=== PATIENT | female | born 1985 | race Caucasian/White ===

== ENCOUNTER 2020-03-25 14:26 | Emergency (ER) | payer OTHER ==
[~2020-03-25] VITALS: Ht 165.1 cm; Wt 79.8 kg
[2020-03-25 15:52] LABS: Basophils # (auto) 0.1 10 ^3/uL (0-0.2); Basophils % (auto) 0.7 % (0.0-2.0); Eosinophils # (auto) 0.2 10 ^3/uL (0-0.8); Eosinophils % (auto) 2.1 % (0.0-7.0); Hematocrit 35.9 % (36.0-46.0); Lymphocytes # (auto) 3.1 10 ^3/uL (0.4-5.4); Lymphocytes % (auto) 26.9 % (10.0-50.0); Mean Corpuscular Hemoglobin 30.7 pg (28.0-32.0); Mean Corpuscular Hgb Conc. 33.5 g/dL (32.0-36.0); Mean Corpuscular Volume 91.6 fL (80.0-100.0); Monocytes # (auto) 0.6 10 ^3/uL (0-1.3); Monocytes % (auto) 5.4 % (0.0-12.0); Neutrophils # (auto) 7.6 10 ^3/uL (1.6-8.6); Neutrophils % (auto) 64.9 % (37.0-80.0); Nucleated Red Blood Cells % 0.1 %; Platelet Count (auto) 270 10^3/uL (140-450); Red Blood Cells 3.92 10^6/uL (4.0-5.20); Red Cell Distribution Width 12.7 % (11.8-14.3); White Blood Cell 11.7 10^3/uL (4.4-10.8)
[2020-03-25 19:52] VITALS: BP 142/79
== END 2020-03-25 20:05 | disposition home or self-care (01) ==
LOC: ER 14:26
DX: O36.4XX0 Maternal care for intrauterine death, not applicable or unspecified (principal)
CPT/HCPCS: 36415; 76801; 76817; 84702; 85025; 86850; 86900; 86901

== ENCOUNTER 2020-03-29 05:21 | Day surgery (SDC) | payer OTHER ==
[~2020-03-29] VITALS: Ht 165.1 cm; Wt 79.8 kg
[2020-03-29] MEDS ORDERED: LACTATED RINGER'S 1,000 ML IV ONE (06:15)
[2020-03-29] MEDS ORDERED: cefTRIAXone 1GM/50ML D5W 50 ML IV ONE (06:45)
[2020-03-29 06:53] LABS: Urine Bacteria FEW /hpf (None Seen); Urine Blood 3+ /uL (Negative); Urine Mucus FEW (None Seen); Urine Specific Gravity 1.041 (1.001-1.035); Urine WBC 43 /hpf (0 - 5)
[2020-03-29 07:34] LABS: Basophils # (auto) 0 10 ^3/uL (0-0.2); Basophils % (auto) 0.6 % (0.0-2.0); Eosinophils # (auto) 0 10 ^3/uL (0-0.8); Hematocrit 34.3 % (36.0-46.0); Hemoglobin 11.8 g/dL (12.2-16.2); Lymphocytes # (auto) 0.8 10 ^3/uL (0.4-5.4); Lymphocytes % (auto) 10.7 % (10.0-50.0); Mean Corpuscular Hemoglobin 31.5 pg (28.0-32.0); Mean Corpuscular Hgb Conc. 34.4 g/dL (32.0-36.0); Mean Corpuscular Volume 91.7 fL (80.0-100.0); Monocytes # (auto) 0.3 10 ^3/uL (0-1.3); Monocytes % (auto) 3.7 % (0.0-12.0); Neutrophils # (auto) 6.1 10 ^3/uL (1.6-8.6); Platelet Count (auto) 248 10^3/uL (140-450); Red Blood Cells 3.74 10^6/uL (4.0-5.20); White Blood Cell 7.2 10^3/uL (4.4-10.8)
[2020-03-29 07:50] LABS: INR 1.06 (0.9-1.15); Partial Thromboplastin Time 25.5 sec (23.64-32.05)
[2020-03-29 07:53] LABS: Albumin 3.8 g/dL (3.4-5.0); Calcium 8.9 mg/dL (8.5-10.1); Potassium 3.5 mmol/L (3.5-5.1)
[2020-03-29 07:56] LABS: Bilirubin, Total 0.7 mg/dL (0.2-1.0); Total Protein 7.6 g/dL (6.4-8.2)
[2020-03-29] MEDS ORDERED: MEPERIDINE HCL (25 MG/ML) 1ML VIAL ONE (08:25)
[2020-03-29] MEDS ORDERED: MIDAZOLAM HCL 1MG/1ML-2 ML VIAL ONE (08:26)
[2020-03-29] MEDS ORDERED: SODIUM CHLORIDE LOCK 10 ML ONE (08:26)
[2020-03-29] MEDS ORDERED: ONDANSETRON HCL 4 MG/2 ML VIAL ONE (08:26)
[2020-03-29] MEDS ORDERED: fentaNYL CITRATE 100 MCG/2 ML VL ONE (08:26)
[2020-03-29] MEDS ORDERED: PROPOFOL 10 MG/ML 20 ML IV ONE (08:26)
[2020-03-29] MEDS ORDERED: LIDOCAINE 2% (LOCAL ANESTH.) PF 5ml SDV ONE (09:41)
[2020-03-29] MEDS ORDERED: OXYTOCIN 10UNIT/ML 1ML VIAL ONE (10:08)
[2020-03-29] MEDS ORDERED: LACTATED RINGER'S 1,000 ML IV SCH (10:21)
[2020-03-29] MEDS ORDERED: ONDANSETRON HCL 4 MG/2 ML VIAL IV PRN (10:30)
[2020-03-29 11:30] VITALS: BP 116/68
== END 2020-03-29 12:09 | disposition home or self-care (01) ==
LOC: ER 05:21 → OR 1 05:22 → ER 09:06 → OR 1 12:09
PROVIDERS: ATTEND Specialist
DX: N93.9 Abnormal uterine and vaginal bleeding, unspecified (principal); O02.1 Missed abortion; F41.9 Anxiety disorder, unspecified; F32.9 Major depressive disorder, single episode, unspecified; I34.1 Nonrheumatic mitral (valve) prolapse; Z90.49 Acquired absence of other specified parts of digestive tract; Z98.51 Tubal ligation status; Z80.9 Family history of malignant neoplasm, unspecified
CPT/HCPCS: 36415; 59820; 80053; 81001; 84702; 85025; 85610; 85730; 86850; 86900; 86901; J0696; J2001; J2175; J2250; J2405; J2590; J2704; J3010

== ENCOUNTER → 2020-04-15 | Outpatient (CLI) | payer OTHER | END | disposition home or self-care (01) | LOC: LAB 11:28 | PROVIDERS: ATTEND Specialist | DX: O07.4 Failed attempted termination of pregnancy without complication (principal) | CPT/HCPCS: 36415; 84702 ==

== ENCOUNTER 2024-08-21 03:23 | Emergency (ER) | payer OTHER ==
[~2024-08-21] VITALS: Ht 165.1 cm; Wt 81.8 kg
--- NOTE | 2024-08-21 03:40 | ED.PDOC ---
History of Present Illness HPI Comments 39-year-old female presents with a chief complaint of chest pain, palpitations, and dysuria. Patient states that the chest pain began at 0100 this morning, describes as pressure, and rates her pain a 6/10. Patient mentions that she has been having "UTI symptoms since Wednesday". Patient is agitated upon questioning. No other symptoms or modifying factors present at this time. 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 Family History Family History: Family hx of Cancer, Family hx of heart bao Family History (Other): Hyperthyroidism, fibromialgia, high lipids; seizures Social History Smoker: Non-Smoker Alcohol: Rarely Drugs: Marijuana Lives In: Home Constitutional: denies: chills, diaphoresis, fatigue, fever, malaise, sweats, weakness, others EENTM: denies: blurred vision, double vision, ear bleeding, ear discharge, ear drainage, ear pain, ear ringing, eye pain, eye redness, hearing loss, mouth pain, mouth swelling, nasal discharge, nose bleeding, nose congestion, nose pain, photophobia, tearing, throat pain, throat swelling, voice changes, others Respiratory: denies: cough, hemoptysis, orthopnea, SOB at rest, shortness of breath, SOB with excertion, stridor, wheezing, others Cardiovascular: reports: chest pain, palpitations; denies: dizzy spells, diaphoresis, Dyspnea on exertion, edema, irregular heart beat, left arm pain, lightheadedness, PND, syncope, others Gastrointestinal: denies: abdomen distended, abdominal pain, blood streaked bowels, constipated, diarrhea, dysphagia, difficulty swallowing, hematemesis, melena, nausea, poor appetite, poor fluid intake, rectal bleeding, rectal pain, vomiting, others Genitourinary: reports: dysuria; denies: abnormal vagina bleeding, burning, dyspareunia, flank pain, frequency, hematuria, incontinence, pain, , vagina discharge, urgency, others Neurological: denies: dizziness, fainting, headache, left sided numbness, left sided weakness, numbness, paresthesia, pre-existing deficit, right sided numbness, right sided weakness, seizure, speech problems, tingling, tremors, weakness, others Musculoskeletal: denies: back pain, gout, joint pain, joint swelling, muscle pain, muscle stiffness, neck pain, others Integumetry: denies: bruises, change in color, change in hair/nails, dryness, laceration, lesions, lumps, rash, wounds, others Allergic/Immunocompromised: denies: Difficulty Healing, Frequent Infections, Hives, Itching, others Hematologic/Lymphatic: denies: anemia, blood clots, easy bleeding, easy bruising, swollen glands, others Endocrine: denies: excessive hunger, excessive sweating, excessive thirst, excessive urination, flushing, intolerance to cold, intolerance to heat, unexplained weight gain, unexplained weight loss, others Psychiatric: denies: anxiety, bipolar disorder, depression, hopeless, panic disorder, schizophrenia, sleepless, suicidal, others All Other Systems: Reviewed and Negative Physical Exam General Appearance: No Apparent Distress, Normal HEENT: Normal ENT Inspection, Pharynx Normal, TMs Normal Neck: Full Range of Motion, Non-Tender, Normal, Normal Inspection Respiratory: Chest Non-Tender, Lungs Clear, No Accessory Muscle Use, No Respiratory Distress, Normal Breath Sounds Cardiovascular: No Edema, No JVD, No Murmur, No Gallop, Normal Peripheral Pulses, Regular Rate/Rhythm Breast Exam: Deferred Gastrointestinal: No Organomegaly, Non Tender, No Pulsatile Mass, Normal Bowel Sounds, Soft Genitalia: Deferred Pelvic: Deferred Rectal: Deferred Extremities: No calf tenderness, Normal capillary refill, Normal inspection, Normal range of motion, Non-tender, No pedal edema Musculoskeletal : Apperance: Normal Neurologic: Alert, superintendent building II-XII nml as Tested, No Motor Deficits, Normal Affect, Normal Mood, No Sensory Deficits Cerebellar Function: Normal Reflexes: Normal Skin: Dry, Normal Color, Warm Lymphatic: No Adenopathy Was a procedure done? Was a procedure done?: No Differential Dx Considerations may include: UTI, pyelonephritis, viral syndrome, musculoskeletal strain X-Ray, Labs, Meds, VS Vital Signs Date Time Temp Pulse Resp B/P (MAP) Pulse Ox O2 Delivery O2 Flow Rate FiO2 08/21/24 04:54 100.2 08/21/24 04:31 106 08/21/24 03:50 100.5 114 20 123/79 (94) 99 100.5 08/21/24 03:50 114 20 99 Room Air 08/21/24 03:47 100.1 08/21/24 03:31 107 08/21/24 03:28 100.5 114 20 123/79 (94) 99 Lab Test 08/21/24 04:21 08/21/24 04:16 08/21/24 03:35 Range/Units Urine Color Straw Yellow Urine Clarity Turbid H Clear Urine pH 6.5 5.0-9.0 Urine Specific [place] 1.014 1.001-1.035 Urine Protein 1+ H Negative Urine Ketones 2+ H Negative Urine Blood 2+ H Negative /uL Urine Nitrite Negative Negative Urine Bilirubin Negative Negative Urine Urobilinogen Normal Negative mg/dL Urine Leukocyte Esterase 3+ Negative /uL Urine RBC 123 0 - 4 /hpf Urine WBC 575 0 - 5 /hpf Urine Squamous Epithelial Cells Few <5 /hpf Urine Bacteria Few H None Seen /hpf Urine Mucus Few None Seen Urine Yeast (Budding) Few None Seen /hpf Urine Glucose Normal Normal mg/dL Urine Test Negative Negative Troponin I High Sensitivity < 3 L < 3 L </=34 ng/L White Blood Count 17.7 H 4.4-10.8 10^3/uL Red Blood Count 5.09 4.0-5.20 10^6/uL Hemoglobin 15.7 12.2-16.2 g/dL Hematocrit 45.8 36.0-46.0 % Mean Corpuscular Volume 89.9 80.0-100.0 fL Mean Corpuscular Hemoglobin 30.9 28.0-32.0 pg Mean Corpuscular Hemoglobin Concent 34.4 32.0-36.0 g/dL Red Cell Distribution Width 12.7 11.8-14.3 % Platelet Count 309 140-450 10^3/uL Mean Platelet Volume 8.1 6.9-10.8 fL Neutrophils (%) (Auto) 80.6 H 37.0-80.0 % Lymphocytes (%) (Auto) 11.3 10.0-50.0 % Monocytes (%) (Auto) 7.0 0.0-12.0 % Eosinophils (%) (Auto) 0.3 0.0-7.0 % Basophils (%) (Auto) 0.8 0.0-2.0 % Neutrophils # (Auto) 14.3 H 1.6-8.6 10 ^3/uL Lymphocytes # (Auto) 2.0 0.4-5.4 10 ^3/uL Monocytes # (Auto) 1.2 0-1.3 10 ^3/uL Eosinophils # (Auto) 0.1 0-0.8 10 ^3/uL Basophils # (Auto) 0.1 0-0.2 10 ^3/uL Nucleated Red Blood Cells 0.0 % Sodium Level 137 136-145 mmol/L Potassium Level 3.8 3.5-5.1 mmol/L Chloride Level 104 98-107 mmol/L Carbon Dioxide Level 24 20-31 mmol/L Anion Gap 9 5-15 Blood Urea Nitrogen 9 9-23 mg/dL Creatinine 1.08 H 0.550-1.02 mg/dL Glomerular Filtration Rate Calc 67 >90 mL/min BUN/Creatinine Ratio 8.3 L 10.0-20.0 Serum Glucose 108 H 74-106 mg/dL Calcium Level 10.1 8.7-10.4 mg/dL Current Medications Medications (Trade) Dose Ordered Sig/Guero Route Start Time Stop Time Status Last Admin Acetaminophen (Tylenol Solution Oral) 1,000 mg ONCE ONCE PO 08/21/24 03:45 08/21/24 03:46 DC 08/21/24 03:47 Time of 1ST Reevaluation: 04:07 Reevaluation 1ST: Unchanged Patient Education/Counseling: Diagnosis, Treatment, Prognosis Family Education/Counseling: No Family Present Departure 1 Departure Time of Disposition: 05:51 (Patient has a urinary tract infection. Uterus workup is benign. We will discharge patient home with outpatient follow up) Impression: Primary Impression: Urinary tract infection Qualified Codes: N30.01 - Acute cystitis with hematuria Additional Impression: Chest pain Qualified Codes: R07.89 - Other chest pain Disposition: HOME / SELF CARE / HOMELESS Condition: Stable Additional Instructions: You have a urinary tract infection. You were prescribed antibiotics. Please take as directed. You can take Tylenol Motrin as needed for pain. It is important that he follow up with the regular doctor within 1 week to ensure you are doing better. If your symptoms worsen or you have any other concerns then please return to the emergency room. e-Prescriptions Cefdinir (Cefdinir) 300 Mg Cap 1 CAP PO BID for 7 Days, #14 CAP Prov: MARLENA MULTANI MD 08/21/24 Discharged With: Self Critical Care Note Critical Care Time?: No Stability Stability form required: No I personally scribed for MARLENA MULTANI MD ([email or web address]) on 08/21/24 at 03:40. Electronically submitted by Vidal Power ([email or web address]). MARLENA MULTANI MD Aug 21, 2024 03:40
[2024-08-21] MEDS: ACETAMINOPHEN 650 mg PER 20.3 mL UD PO ONE (03:47)
[2024-08-21 03:51] LABS: Basophils # (auto) 0.1 10 ^3/uL (0-0.2); Basophils % (auto) 0.8 % (0.0-2.0); Eosinophils # (auto) 0.1 10 ^3/uL (0-0.8); Eosinophils % (auto) 0.3 % (0.0-7.0); Hematocrit 45.8 % (36.0-46.0); Hemoglobin 15.7 g/dL (12.2-16.2); Lymphocytes % (auto) 11.3 % (10.0-50.0); Mean Corpuscular Hemoglobin 30.9 pg (28.0-32.0); Mean Corpuscular Hgb Conc. 34.4 g/dL (32.0-36.0); Mean Corpuscular Volume 89.9 fL (80.0-100.0); Monocytes # (auto) 1.2 10 ^3/uL (0-1.3); Neutrophils # (auto) 14.3 10 ^3/uL (1.6-8.6); Neutrophils % (auto) 80.6 % (37.0-80.0); Platelet Count (auto) 309 10^3/uL (140-450); Red Blood Cells 5.09 10^6/uL (4.0-5.20); Red Cell Distribution Width 12.7 % (11.8-14.3); White Blood Cell 17.7 10^3/uL (4.4-10.8)
[2024-08-21 04:00] LABS: Anion Gap 9 (5-15); Carbon Dioxide 24 mmol/L (20-31); Chloride 104 mmol/L (98-107); Potassium 3.8 mmol/L (3.5-5.1); Sodium 137 mmol/L (136-145)
[2024-08-21 04:01] LABS: Calcium 10.1 mg/dL (8.7-10.4)
[2024-08-21 04:06] LABS: BUN/Creatinine Ratio 8.3 (10.0-20.0)
[2024-08-21 04:10] LABS: Blood Urea Nitrogen 9 mg/dL (9-23); Glucose 108 mg/dL (74-106)
[2024-08-21 04:41] LABS: Urine Bacteria FEW /hpf (None Seen); Urine Blood 2+ /uL (Negative); Urine Budding Yeast FEW /hpf (None Seen); Urine Clarity Turbid (Clear); Urine Mucus FEW (None Seen); Urine Protein, UAD 1+ (Negative); Urine Specific Gravity 1.014 (1.001-1.035); Urine Urobilinogen Normal (Negative); Urine WBC 575 /hpf (0 - 5); Urine pH 6.5 (5.0-9.0)
[2024-08-21 04:46] LABS: Urine Color STRAW (Yellow)
[2024-08-21] MEDS ORDERED: CEFD300C2 PO (05:52)
[2024-08-21 06:13] VITALS: BP 130/59; RESP 18; TEMP 98.5; O2SAT 98
[2024-08-21] MEDS: ONDANSETRON HCL 4 MG/2 ML VIAL ONE (06:20)
[2024-08-21] MEDS: cefTRIAXone 1GM/50ML D5W 50 ML IV ONE (06:20)
[2024-08-21] MEDS: ONDANSETRON HCL 4 MG/2 ML VIAL IV ONE (06:21)
[2024-08-21 06:35] VITALS: PULSE 90
--- NOTE | 2024-08-21 06:48 | ECG ---
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
--- NOTE | 2024-08-21 06:48 | ECG ---
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
--- NOTE | 2024-08-22 14:48 | ECG ---
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
== END 2024-08-21 06:49 | disposition home or self-care (01) ==
LOC: ER 03:23
DX: N39.0 Urinary tract infection, site not specified (principal); R07.89 Other chest pain; F41.9 Anxiety disorder, unspecified; F32.9 Major depressive disorder, single episode, unspecified; F15.90 Other stimulant use, unspecified, uncomplicated; Z90.49 Acquired absence of other specified parts of digestive tract; Z98.890 Other specified postprocedural states; Z88.1 Allergy status to other antibiotic agents
CPT/HCPCS: 36415; 80048; 81001; 81025; 84484; 85025; 93005; 96365; 96375; 99284; J0696; J2405

== ENCOUNTER 2025-01-14 17:56 | Inpatient (IN) | payer OTHER ==
[~2025-01-14] VITALS: Ht 165.1 cm; Wt 86.5 kg
[~2025-01-14 17:56] MED LIST: CEFD300C2 PO
--- NOTE | 2025-01-14 19:06 | ED.PDOC ---
History of Present Illness HPI Comments 39 y/o obese F presents with c/o urinary symptoms for the past several months. Patient is a poor historian. She endorses on burning sensation to her urethra and having no relief or improvement after completing 2 courses of antibiotics following placement in September 2024. Patient also c/o head, RUQ abdominal and back pain, with associated vomiting for the past 2 days and chest pain, with elevated heart rate and palpations, today. Only reports a history of depression, anxiety, and uterine ablation. Denies any hematuria, urgency, frequency, incontinence, fever, chills, or further associated symptoms. Chief Complaint: Abdominal Pain Time Seen by MD: 18:25 Primary Care Provider: none Reviewed Notes: Nurses Notes, Medications, Allergies Allergies: Coded Allergies: Amoxicillin (Verified Allergy, Mild, HEADACHE, 03/29/20) Nitrofurantoin (Verified Allergy, Unknown, 01/14/25) Uncoded Allergies: COBAN (Allergy, Unknown, 07/30/14) Home Meds Active Scripts Cefdinir (Cefdinir) 300 Mg Cap, 1 CAP PO BID for 7 Days, #14 CAP Prov:MARLENA MULTANI MD 08/21/24 Information Source: Patient Mode of Arrival: Wheelchair Severity: Moderate Timing: Months Duration: Since onset Prehospital treatment: Other (see HPI) Review of Systems: REVIEW OF SYSTEMS: No fever, no chills, or fatigue HEENT: No sore throat, no earache, no congestion, no neck pain. Cardiac: chest pain. palpitations. elevated heart rate Lungs: No shortness of breath, no cough. GI: RUQ abdominal pain. vomiting. No nausea, no diarrhea, no constipation, : Ureteral pain No hematuria. Musculoskeletal: Back pain. No joint pain , no joint swelling, no extremity edema. Skin: No rash, no itching. Neuro: headache, no dizziness, no weakness Vital Signs Vital Signs Date Time Temp Pulse Resp B/P (MAP) Pulse Ox O2 Delivery O2 Flow Rate FiO2 01/14/25 22:03 99.6 101 20 118/75 (89) 100 99.6 Physical Exam General: Awake, alert and oriented. No acute distress. Obese. Skin: Mildly diaphoretic. Skin in warm and intact. Appropriate color for ethnicity. HEENT: The head is normocephalic and atraumatic. Conjunctivae are clear without exudates or hemorrhage. Sclera is non-icteric. EOM are intact. No signs of nystagmus. Eyelids are normal in appearance without swelling or lesions. Oral mucosa is pink and moist Neck: The neck is supple with normal range of motion. No JVD. Cardiac: Rapid rate but normal rhythm. No murmurs, gallops, or rubs are auscultated. Respiratory: No signs of respiratory distress. Lung sounds are clear in all lobes bilaterally without rales, rhonchi, or wheezes. Abdominal: Right upper and lower quadrant and epigastric tenderness. Abdomen is soft, without distention. Bowel sounds are present and normoactive in all four quadrants. Extremities: Upper and lower extremities are atraumatic in appearance without deformity or edema. Neurological: The patient is awake, alert and oriented to person, place, and time with normal speech. Speech is clear. There is no facial asymmetry. Psychiatric: Appropriate mood and affect. Good judgement and insight. 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 Was a procedure done?: No EKG EKG : Pulse Rate (adult): 152 [place]: Normal Cardiac Rhythm: ST Block: None Hypertrophy: None ST: Normal Comments Singulair PVC. No STEMI Differential Dx Considerations may include: Differential diagnoses considered include: Abdominal aortic aneurysm, CT, esophageal rupture, intestinal obstruction, mesenteric ischemia, perforated vi scus or solid organ rupture, CHF with hepatomegaly, pneumonia, abscess, appendicitis, biliary disease, diverticulitis, gastritis, gastroenteritis, hepatitis, hernia, inflammatory bowel disease, pancreatitis, peptic ulcer disease, urinary tract infection, ureteral colic, constipation, GERD, irritable syndrome, abdominal wall pain, nonspecific abdominal pain, herpes zoster. X-Ray, Labs, Meds, VS Vital Signs Date Time Temp Pulse Resp B/P (MAP) Pulse Ox O2 Delivery O2 Flow Rate FiO2 01/14/25 22:03 99.6 101 20 118/75 (89) 100 99.6 01/14/25 20:00 102.8 01/14/25 19:54 102.8 138 22 110/74 (86) 99 102.8 01/14/25 19:06 152 01/14/25 18:24 152 01/14/25 18:21 102.7 145 22 96/65 (75) 99 102.7 Lab Test 01/14/25 21:04 01/14/25 19:07 Range/Units Lactic Acid Level 1.8 2.2 *H 0.4-2.0 mmol/L White Blood Count 29.3 H 4.4-10.8 10^3/uL Red Blood Count 4.90 4.0-5.20 10^6/uL Hemoglobin 15.3 12.2-16.2 g/dL Hematocrit 42.9 36.0-46.0 % Mean Corpuscular Volume 87.7 80.0-100.0 fL Mean Corpuscular Hemoglobin 31.2 28.0-32.0 pg Mean Corpuscular Hemoglobin Concent 35.6 32.0-36.0 g/dL Red Cell Distribution Width 13.1 11.8-14.3 % Platelet Count 207 140-450 10^3/uL Mean Platelet Volume 8.6 6.9-10.8 fL Neutrophils (%) (Auto) 37.0-80.0 % Lymphocytes (%) (Auto) 10.0-50.0 % Monocytes (%) (Auto) 0.0-12.0 % Basophils (%) (Auto) 0.0-2.0 % Neutrophils # (Auto) 1.6-8.6 10 ^3/uL Lymphocytes # (Auto) 0.4-5.4 10 ^3/uL Monocytes # (Auto) 0-1.3 10 ^3/uL Differential Total Cells Counted 100.0 100 Neutrophils % (Manual) 88 H 37.0-80.0 Band Neutrophils % (Manual) 4 Lymphocytes % (Manual) 2 L 10.0-50.0 Monocytes % (Manual) 6 0-12 Eosinophils % (Manual) 0 0-7 Basophils % (Manual) 0 0.0-2.0 Metamyelocytes % (manual) 0 Myelocytes % (Manual) 0 Promyelocytes % (Manual) 0 Blast Cells % (Manual) 0 Reactive Lymphocytes 0 Platelet Estimate Adequate Red Blood Cell Morphology Normal Urine Color Light-orange Yellow Urine Clarity Turbid H Clear Urine pH 6.0 5.0-9.0 Urine Specific [place] 1.026 1.001-1.035 Urine Protein 2+ H Negative Urine Ketones 2+ H Negative Urine Blood 2+ H Negative /uL Urine Nitrite Negative Negative Urine Bilirubin Negative Negative Urine Urobilinogen Normal Negative mg/dL Urine Leukocyte Esterase 2+ Negative /uL Urine RBC 20 0 - 4 /hpf Urine Microscopic WBC 59 H 0-5 /HPF Urine Squamous Epithelial Cells Mod <5 /hpf Urine Bacteria Few H None Seen /hpf Urine Mucus Few None Seen Urine Glucose Trace Normal mg/dL Sodium Level 134 L 136-145 mmol/L Potassium Level 3.4 L 3.5-5.1 mmol/L Chloride Level 101 98-107 mmol/L Carbon Dioxide Level 20 20-31 mmol/L Anion Gap 13 5-15 Blood Urea Nitrogen 9 9-23 mg/dL Creatinine 1.05 H 0.550-1.02 mg/dL Glomerular Filtration Rate Calc 70 >90 mL/min BUN/Creatinine Ratio 8.6 L 10.0-20.0 Serum Glucose 116 H 74-106 mg/dL Calcium Level 9.6 8.7-10.4 mg/dL Total Bilirubin 1.3 H 0.2-1.0 mg/dL Aspartate Amino Transferase (AST) 33 13-40 U/L Alanine Aminotransferase (ALT) 67 H 7-40 U/L Alkaline Phosphatase 99 46-116 U/L Troponin I High Sensitivity < 3 L </=34 ng/L B-Type Natriuretic Peptide 13.01 0-100 pg/mL Total Protein 7.9 5.7-8.2 g/dL Albumin 4.9 H 3.2-4.8 g/dL Urine Opiates Screen Neg NEGATIVE Urine Fentanyl Screen Neg NEGATIVE Urine Barbiturates Screen Neg NEGATIVE Urine Phencyclidine Screen Neg NEGATIVE Urine Amphetamines Screen Neg NEGATIVE Urine Benzodiazepines Screen Neg NEGATIVE Urine Cocaine Screen Neg NEGATIVE Urine Cannabinoids Screen Pos NEGATIVE Current Medications Medications (Trade) Dose Ordered Sig/Guero Route Start Time Stop Time Status Last Admin Sodium Chloride 1,000 ml @ 1,000 mls/hr Q1H ONCE IV 01/14/25 18:45 01/14/25 19:44 DC 01/14/25 20:56 Ondansetron HCl (Zofran) 4 mg ONCE ONCE IV 01/14/25 18:45 01/14/25 18:46 DC 01/14/25 19:36 Ceftriaxone Sodium 50 ml @ 100 mls/hr ONCE ONCE IV 01/14/25 18:45 01/14/25 19:14 DC 01/14/25 19:36 Vancomycin HCl 200 ml @ 200 mls/hr ONCE ONCE IV 01/14/25 18:45 01/14/25 19:44 DC 01/14/25 20:55 Ketorolac Tromethamine (Toradol Injection) 15 mg ONCE ONCE IV 01/14/25 18:45 01/14/25 18:46 DC 01/14/25 19:36 Acetaminophen (Tylenol Tablet) 650 mg ONCE ONCE PO 01/14/25 20:00 01/14/25 20:01 DC 01/14/25 20:00 Time of 1ST Reevaluation: 18:55 Reevaluation 1ST: Unchanged Patient Education/Counseling: Other (Need for admission) Family Education/Counseling: No Family Present Departure 1 Departure Time of Disposition: 21:52 Impression: Primary Impression: Sepsis Disposition: ADMITTED INPATIENT Condition: Stable Comments IV fluids, antibiotics initiated in the emergency department. Extensive evaluation was performed in attempt to identify or rule out: (See differential diagnosis section) The following tests were ordered, and results were reviewed by me and discussed with patient: (See diagnostic results section) The following test were independently interpreted by me: EKG I reviewed and agreed with the following test results read by other providers: N/A I reviewed the following notes from the pt's past medical encounters: June 23, 2024 and August 21, 2024 encounters for threatened and UTI, res pectively. Additional information was gathered from interviewing the following independent historians: N/A Discussion of management or test interpretation with external physician/other qualified health health care marketing specialist: N/A Addressed an acute or chronic illness that poses a threat to life or bodily function: Sepsis Decision regarding hospitalization or escalation of hospital level of care: Risk and benefits of admission for further treatment of patient's condition was considered. Due to patient's current clinical condition, high risk of decline and poor outcome if discharged and need for further inpatient management and monitoring, patient will be admitted to the hospital. Drug therapy requiring intensive monitoring for toxicity: N/A Parenteral controlled substances: N/A Decision regarding elective major surgery with identified patient or procedure risk factors: N/A Decision regarding emergency major surgery: N/A Decision not to resuscitate or to de-escalate care because of poor prognosis: N/A Diagnosis or treatment significantly limited by social determinants of health: N/A Critical Care Note Critical Care Time?: Yes (35 min-critical care time only) Critical care comment: Due to a high probability of clinically significant, life threatening deterioration, the patient required my highest level of preparedness to interven e emergently and I personally spent this critical care time directly and personally managing the patient. This critical care time included obtaining a history; examining the patient; pulse oximetry; ordering and review of studies; arranging urgent treatment with development of a management plan; evaluation of patient's response to treatment; frequent reassessment; and, discussions with other providers. This critical care time was performed to assess and manage the high probability of imminent, life-threatening deterioration that could result in multi-organ failure. It was exclusive of separately billable procedures and treating other patients and teaching time. Please see my other sections and the rest of the note for further information on patient assessment and treatment. Stability Stability form required: No Heart Score Heart Score: Heart Score Response (Comments) Value History N/A 0 EKG N/A 0 Age N/A 0 Risk Factors N/A 0 Troponin N/A 0 Total 0 I personally scribed for YUNIER HUFFMAN MD ([email or web address]) on 01/14/25 at 19:06. Kyara ctronically submitted by Denton Jackman ([email or web address]). I personally scribed for YUNIER HUFFMAN MD ([email or web address]) on 01/14/25 at 19:08. Electronically submitted by Denton Jackman ([email or web address]). YUNIER HUFFMAN MD January 14, 2025 19:06
[2025-01-14 19:19] LABS: Urine Bacteria FEW /hpf (None Seen); Urine Blood 2+ /uL (Negative); Urine Clarity Turbid (Clear); Urine Color Light-Orange (Yellow); Urine Mucus FEW (None Seen); Urine Protein, UAD 2+ (Negative); Urine Specific Gravity 1.026 (1.001-1.035); Urine Squamous Epithelial Cell MOD /hpf (<5); Urine Urobilinogen Normal (Negative); Urine WBC 59 /HPF (0-5)
[2025-01-14 19:28] LABS: Amphetamine Screen, Urine Neg (NEGATIVE); Barbiturate Scree,Urine Neg (NEGATIVE); Benzodiazephine Screen, Urine Neg (NEGATIVE); Cannabinoid Screen, Urine Pos (NEGATIVE); Cocaine Screen, Urine Neg (NEGATIVE); Opiate Scree,Urine Neg (NEGATIVE); Phencyclidine Screen, Urine Neg (NEGATIVE)
[2025-01-14 19:32] LABS: Hematocrit 42.9 % (36.0-46.0); Hemoglobin 15.3 g/dL (12.2-16.2); Mean Corpuscular Hemoglobin 31.2 pg (28.0-32.0); Mean Corpuscular Hgb Conc. 35.6 g/dL (32.0-36.0); Mean Corpuscular Volume 87.7 fL (80.0-100.0); Platelet Count (auto) 207 10^3/uL (140-450); Red Cell Distribution Width 13.1 % (11.8-14.3); White Blood Cell 29.3 10^3/uL (4.4-10.8)
[2025-01-14 19:33] LABS: Basophils % (manual) 0 (0.0-2.0); Eosinophils % (manual) 0 (0-7); Metamyelocytes % 0
[2025-01-14 19:34] LABS: Blast Cells 0; Myelocytes % 0; Promyelocytes % 0; Reactive Lymphocytes 0
[2025-01-14] MEDS: cefTRIAXone 1GM/50ML D5W 50 ML IV ONE (19:36)
[2025-01-14] MEDS: ONDANSETRON HCL 4 MG/2 ML VIAL IV ONE (19:36)
[2025-01-14] MEDS: KETOROLAC TROMETH 30 MG/ML 1ML VIAL IV ONE (19:36)
[2025-01-14 19:56] LABS: Alkaline Phosphatase 99 U/L (46-116); Anion Gap 13 (5-15); Aspartate Aminotransferase 33 U/L (13-40); BUN/Creatinine Ratio 8.6 (10.0-20.0); Blood Urea Nitrogen 9 mg/dL (9-23); Calcium 9.6 mg/dL (8.7-10.4); Chloride 101 mmol/L (98-107); Total Protein 7.9 g/dL (5.7-8.2)
[2025-01-14 19:58] LABS: Alanine Aminotransferase 67 U/L (7-40); Albumin 4.9 g/dL (3.2-4.8); Bilirubin, Total 1.3 mg/dL (0.2-1.0); Carbon Dioxide 20 mmol/L (20-31); Glucose 116 mg/dL (74-106); Potassium 3.4 mmol/L (3.5-5.1); Sodium 134 mmol/L (136-145)
[2025-01-14] MEDS: ACETAMINOPHEN 325 MG TAB PO ONE (20:00)
[2025-01-14 20:05] LABS: Lactic Acid w/Reflex 2.2 mmol/L (0.4-2.0)
[2025-01-14] MEDS: SODIUM CHLORIDE 0.9% 1,000 ML IV ONE ×3 (20:10→22:51)
--- NOTE | 2025-01-14 20:31 | DVH ---
CHEST RADIOGRAPH Indication: tachycardia Technique: Single frontal view of the chest was obtained COMPARISON: None FINDINGS: Lines and Tubes: None Lungs: Clear Pleura: No effusion. No pneumothorax. Cardiomediastinal contours: Unremarkable IMPRESSION: No abnormality.
[2025-01-14 20:47] LABS: Band Neutrophils % (manual) 4; Lymphocytes % (manual) 2 (10.0-50.0); Monocytes % (manual) 6 (0-12); Platelet Estimate Adequate; RBC Morphology Normal
[2025-01-14] MEDS: VANCOMYCIN 1GM/200ML PM 200 ML IV ONE (20:55)
[2025-01-14] MEDS ORDERED: VANCOMYCIN PER PHARMACY 0 MG IV SCH (22:15)
[2025-01-14] MEDS ORDERED: HYDROcodone-ACET 5/325MG TAB PO PRN (22:15)
[2025-01-14] MEDS: IOHEXOL 300 MG/ML 100ML BOTTLE IJ ONE (22:50)
[2025-01-14] MEDS: POTASSIUM CHL 20 Meq TABLET PO ONE (22:57)
[2025-01-14] MEDS: SODIUM CHLORIDE 0.9% 1,000 ML IV SCH (22:58)
--- NOTE | 2025-01-14 23:04 | DVH ---
Exam: CT CT AB PEL WITH IV CON ONLY History: sepsis COMPARISON: None Technique: Multidetector spiral CT of the abdomen and pelvis was performed from lung bases to pubic s ymphysis. Intravenous contrast was administered during this examination. Portal venous imaging was o btained. Axial, coronal and sagittal multiplanar reformats were performed by the technologist on a [employer] workstation. Radiation Dose : 1. Abdomen/Pelvis: CTDIvol 22.26 mGy, DLP 1139.55 mGy*cm. CONTRAST: Type of contrast: Omnipaque 300 Contrast injected: 100 ml Contrast ingested: None Findings: Lung Bases: No acute or significant lung base finding. Normal heart size. No pleural or pericardial effusion. Liver: The liver is enlarged, measuring 22.7 cm in craniocaudal dimension. There is diffuse hepatic s teatosis. No focal lesions. Normal hepatic vascular enhancement. Gallbladder and Biliary Tree: Status post cholecystectomy. Spleen: Unremarkable Pancreas: The pancreas is normal in appearance without focal lesions or abnormal enhancement. Adrenal Glands: Unremarkable Kidneys: Delayed right nephrogram with focally diminished attenuation within the superior pole and mild right hydroureteronephrosis with moderate perinephric inflammatory change and stranding. No iden tifiable obstructing calculus. Left interpolar renal cyst measures 2.1 cm. No evidence of left hydron ephrosis. Bladder: Unremarkable Bowel: The stomach is grossly normal in appearance. Small bowel and colon are normal in caliber and d istribution. The appendix is not visualized; however, no secondary findings of acute appendicitis belkis ntified. Ascites: Absent Lymphadenopathy: No mesenteric, retroperitoneal or periportal lymphadenopathy. Abdominal Wall and Mesentery: Unremarkable. Vasculature: The visualized abdominal aorta is normal in size and caliber. Abdominal and pelvic vess els demonstrate normal enhancement. Pelvic Organs: Unremarkable Musculoskeletal: No aggressive focal bony lesions, acute fractures or dislocation. IMPRESSION: 1. Delayed right nephrogram with focally diminished superior pole parenchymal attenuation, mild hydro ureteronephrosis and perinephric inflammatory change and stranding. No obstructive etiology or calcul us identified. These findings are suggestive of sequelae of pyelonephritis. 2. Hepatomegaly and hepatic steatosis. Radiation optimization: All CT scans at this facility use at least one of these dose optimization kayce hniques: automated exposure control mA and/or kV adjustment per patient size (includes targeted exam s where dose is matched to clinical indication) or iterative reconstruction.
[2025-01-14 23:25] VITALS: PULSE 108; RESP 16; O2SAT 100
[2025-01-14 23:48] VITALS: PULSE 108
[2025-01-15] VITALS (7 sets, daily range): BP systolic 98–144; BP diastolic 62–93; PULSE 95–110; RESP 18–20; TEMP 98.2–102; O2SAT 95–100
--- NOTE | 2025-01-15 01:11 | DVHHP2 ---
History of Present Illness Reason for Visit: sepsis History of Present Illness A 39y old with PMHx anxiety, recurrent UTI and obesity who came to ED due to dysuria. Patient stated dysuria since september 2024, but 2 days back she started to feel like a foreign body in her urethra, back pain, fevers, N/V and palpitations Denies any hematuria, urgency, frequency, incontinence, fever, chills, or further associated symptoms. 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 12/21/2024 Family History Family History: Family hx of Cancer, Family hx of heart bao Family History (Other): Hyperthyroidism, fibromialgia, high lipids; seizures Social History Smoker: Non-Smoker Alcohol: Rarely Drugs: Marijuana Lives In: Home Review of Systems Constitutional: Yes: Fever, Chills, Malaise; No: Sweats, Weakness, Other Eyes: No: Pain, Vision change, Conjunctivae inflammation, Eyelid inflammation, Other, Redness ENT: No: Ear pain, Ear discharge, Nose pain, Nose discharge, Nose congestion, Mouth pain, Mouth swelling, Throat pain, Throat swelling, Other Respiratory: No: Cough, Dry, Shortness of breath, SOB with excertion, Wheezing, Hemoptysis, Pleuritic Pain, Sputum, Wheezing, Other Cardiovascular: No: Chest Pain, Palpitations, Orthopnea, Paroxysmal Noc. Dyspnea, Edema, Lt Headedness, Other Gastrointestinal: No: Nausea, Vomiting, Abdominal Pain, Diarrhea, Constipation, Melena, Hematochezia, Other Genitourinary: Dysuria, Frequency; No Incontinence, No Hematuria, No Retention, No Other Musculoskeletal: No: other, neck pain, shoulder pain, arm pain, back pain, hand pain, leg pain, foot pain Skin: No: Rash, Lesions, Jaundice, Bruising, Other Neurological: No: Weakness, Numbness, Incoordination, Change in speech, Confusion, Seizures, Other Allergies: Coded Allergies: Amoxicillin (Verified Allergy, Mild, HEADACHE, 03/29/20) Nitrofurantoin (Verified Allergy, Unknown, 01/14/25) Uncoded Allergies: COBAN (Allergy, Unknown, 07/30/14) Medications Current Medications Medications Dose Ordered Sig/Guero Route Start Time Stop Time Status Last Admin Dose Admin Sodium Chloride 1,000 ml @ 120 mls/hr Q8H20M IV 01/14/25 22:15 01/14/25 22:58 120 MLS/HR Metoclopramide HCl 10 mg Q4HP PRN IV 01/14/25 22:15 Acetaminophen 650 mg Q6HP PRN PO 01/14/25 22:15 Acetaminophen/ Hydrocodone Bitart 1 tab Q4HP PRN PO 01/14/25 22:15 Ondansetron HCl 4 mg Q4HP PRN IV 01/14/25 22:15 Morphine Sulfate 2 mg Q4HPRN PRN IV 01/14/25 22:15 Enoxaparin Sodium 40 mg DAILY SC 01/15/25 10:00 Piperacillin Sod/ Tazobactam Sod 100 ml @ 25 mls/hr Q8HR IV 01/15/25 06:00 Vancomycin HCl 0 ml @ 0 mls/hr UD IV 01/14/25 22:15 UNV Vancomycin HCl 200 ml @ 200 mls/hr 0900,2100 IV 01/15/25 09:00 Exam Vital Signs Vital Signs Date Time Temp Pulse Resp B/P (MAP) Pulse Ox O2 Delivery O2 Flow Rate FiO2 01/15/25 00:26 98.9 98 19 98/62 (74) 97 98.9 01/14/25 23:25 Room Air* 0 21 General Appearance: Alert, Oriented X3, Cooperative HEENT: Atraumatic, PERRLA, EOMI Respiratory: Clear to auscultation, Normal air movement Cardiovascular: Regular rate, Normal S1 Abdominal: Other (mild tenderness in left flank) Extremities: No clubbing, No cyanosis Skin: No rashes, No breakdown Neuro: Normal gait, Normal speech Psych/Mental Status: Mental status NL, Mood NL Labs/Xrays Labs Test 01/14/25 21:04 01/14/25 19:07 Range/Units Lactic Acid Level 1.8 0.4-2.0 mmol/L White Blood Count 29.3 H 4.4-10.8 10^3/uL Red Blood Count 4.90 4.0-5.20 10^6/uL Hemoglobin 15.3 12.2-16.2 g/dL Hematocrit 42.9 36.0-46.0 % Mean Corpuscular Volume 87.7 80.0-100.0 fL Mean Corpuscular Hemoglobin 31.2 28.0-32.0 pg Mean Corpuscular Hemoglobin Concent 35.6 32.0-36.0 g/dL Red Cell Distribution Width 13.1 11.8-14.3 % Platelet Count 207 140-450 10^3/uL Mean Platelet Volume 8.6 6.9-10.8 fL Neutrophils (%) (Auto) 37.0-80.0 % Lymphocytes (%) (Auto) 10.0-50.0 % Monocytes (%) (Auto) 0.0-12.0 % Basophils (%) (Auto) 0.0-2.0 % Neutrophils # (Auto) 1.6-8.6 10 ^3/uL Lymphocytes # (Auto) 0.4-5.4 10 ^3/uL Monocytes # (Auto) 0-1.3 10 ^3/uL Differential Total Cells Counted 100.0 100 Neutrophils % (Manual) 88 H 37.0-80.0 Band Neutrophils % (Manual) 4 Lymphocytes % (Manual) 2 L 10.0-50.0 Monocytes % (Manual) 6 0-12 Eosinophils % (Manual) 0 0-7 Basophils % (Manual) 0 0.0-2.0 Metamyelocytes % (manual) 0 Myelocytes % (Manual) 0 Promyelocytes % (Manual) 0 Blast Cells % (Manual) 0 Reactive Lymphocytes 0 Platelet Estimate Adequate Red Blood Cell Morphology Normal Urine Color Light-orange Yellow Urine Clarity Turbid H Clear Urine pH 6.0 5.0-9.0 Urine Specific [place] 1.026 1.001-1.035 Urine Protein 2+ H Negative Urine Ketones 2+ H Negative Urine Blood 2+ H Negative /uL Urine Nitrite Negative Negative Urine Bilirubin Negative Negative Urine Urobilinogen Normal Negative mg/dL Urine Leukocyte Esterase 2+ Negative /uL Urine RBC 20 0 - 4 /hpf Urine Microscopic WBC 59 H 0-5 /HPF Urine Squamous Epithelial Cells Mod <5 /hpf Urine Bacteria Few H None Seen /hpf Urine Mucus Few None Seen Urine Glucose Trace Normal mg/dL Sodium Level 134 L 136-145 mmol/L Potassium Level 3.4 L 3.5-5.1 mmol/L Chloride Level 101 98-107 mmol/L Carbon Dioxide Level 20 20-31 mmol/L Anion Gap 13 5-15 Blood Urea Nitrogen 9 9-23 mg/dL Creatinine 1.05 H 0.550-1.02 mg/dL Glomerular Filtration Rate Calc 70 >90 mL/min BUN/Creatinine Ratio 8.6 L 10.0-20.0 Serum Glucose 116 H 74-106 mg/dL Calcium Level 9.6 8.7-10.4 mg/dL Total Bilirubin 1.3 H 0.2-1.0 mg/dL Aspartate Amino Transferase (AST) 33 13-40 U/L Alanine Aminotransferase (ALT) 67 H 7-40 U/L Alkaline Phosphatase 99 46-116 U/L Troponin I High Sensitivity < 3 L </=34 ng/L B-Type Natriuretic Peptide 13.01 0-100 pg/mL Total Protein 7.9 5.7-8.2 g/dL Albumin 4.9 H 3.2-4.8 g/dL Urine Opiates Screen Neg NEGATIVE Urine Fentanyl Screen Neg NEGATIVE Urine Barbiturates Screen Neg NEGATIVE Urine Phencyclidine Screen Neg NEGATIVE Urine Amphetamines Screen Neg NEGATIVE Urine Benzodiazepines Screen Neg NEGATIVE Urine Cocaine Screen Neg NEGATIVE Urine Cannabinoids Screen Pos NEGATIVE Assessment/Plan Assessment/Plan #Sepsis due to complicated UTI #left pyelonephritis #mild hydroureteronephrosis #Anxiety #Depression #CBD use Admit Medsurg Regular diet Zosyn IV+ Vancomycin IV IV fluids Pain management Enoxaparin SC Case discussed with Dr Herrera Full code Plan discussed with: Patient, Other My Orders Orders - JODY MAYFIELD RESIDENT Procedure Category Date Status Time Admit ADMIT 01/14/25 Transmitted 22:04 Code Status CODE 01/14/25 Transmitted 22:04 Review Orders With LAURIE 01/14/25 In Process Adm. 22:04 Regular Diet DIET 01/15/25 Transmitted Breakfast Sodium Chloride 0.9% PHA 01/14/25 In Process 22:15 Metoclopramide PHA 01/14/25 In Process Injection (Reglan 22:15 Acetaminophen Tablet PHA 01/14/25 In Process (Tylenol Tablet) 22:15 Notify Of Changes LAURIE 01/14/25 In Process From Base 22:04 Advance Directive LAURIE 01/14/25 In Process 22:04 Patient Condition ORDERS 01/14/25 Transmitted 22:04 Allergies LAURIE 01/14/25 In Process 22:04 Hydrocodone-Acet PHA 01/14/25 In Process 5/325mg Tab ([place] 22:15 Ondansetron Hcl PHA 01/14/25 In Process (Zofran) 22:15 Morphine Sulfate PHA 01/14/25 In Process Injection 22:15 Enoxaparin Sodium PHA 01/15/25 In Process (Lovenox) 10:00 Piperacillin-Tazob PHA 01/15/25 In Process 3.375gm (Zosyn 3.375g 06:00 Vancomycin Per PHA 01/14/25 Pending Pharmacy 22:15 Ct Ab Pel With Iv Con CT 01/14/25 Resulted Only 22:04 Vancomycin 1gm/200ml PHA 01/15/25 In Process Pm 09:00 Urine Bacterial TANYA 01/15/25 Logged Culture 00:02 Date of Service: January 14, 2025 Billing Provider: CHINYERE HERRERA MD Common Visit Codes: [id number] INP/OBS CARE (HIGH) Secondary Visit Codes: [id number] CARE PLAN 30 MINUTES JODY MAYFIELD RESIDENT January 15, 2025 01:11
[2025-01-15] MEDS: ACETAMINOPHEN 325 MG TAB PO PRN (01:22)
[2025-01-15] MEDS ORDERED: cefTRIAXone 1GM/50ML D5W 50 ML IV SCH (02:00)
[2025-01-15] MEDS: ONDANSETRON HCL 4 MG/2 ML VIAL IV PRN (02:26)
[2025-01-15] MEDS: PIPERACILLIN-TAZOB 3.375GM 100 ML IV SCH (05:01)
[2025-01-15] MEDS: MORPHINE SULFATE INJ 2 MG/ml SYRG IV PRN (05:23)
[2025-01-15] MEDS: VANCOMYCIN 1GM/200ML PM 200 ML IV SCH (08:57)
[2025-01-15] MEDS: ENOXAPARIN SOD 40 MG/0.4 ML SYRINGE SC SCH (08:58)
[2025-01-15 10:06] LABS: Basophils # (auto) 0.1 10 ^3/uL (0-0.2); Basophils % (auto) 0.3 % (0.0-2.0); Eosinophils # (auto) 0 10 ^3/uL (0-0.8); Eosinophils % (auto) 0.1 % (0.0-7.0); Hematocrit 36.5 % (36.0-46.0); Hemoglobin 12.5 g/dL (12.2-16.2); Lymphocytes # (auto) 0.9 10 ^3/uL (0.4-5.4); Lymphocytes % (auto) 4.4 % (10.0-50.0); Mean Corpuscular Hemoglobin 30.5 pg (28.0-32.0); Mean Corpuscular Hgb Conc. 34.1 g/dL (32.0-36.0); Mean Corpuscular Volume 89.4 fL (80.0-100.0); Monocytes # (auto) 1.5 10 ^3/uL (0-1.3); Monocytes % (auto) 7.6 % (0.0-12.0); Neutrophils # (auto) 17.8 10 ^3/uL (1.6-8.6); Neutrophils % (auto) 87.6 % (37.0-80.0); Platelet Count (auto) 177 10^3/uL (140-450); Red Blood Cells 4.08 10^6/uL (4.0-5.20); White Blood Cell 20.3 10^3/uL (4.4-10.8)
[2025-01-15 10:20] LABS: Albumin 3.8 g/dL (3.2-4.8); Alkaline Phosphatase 89 U/L (46-116); Anion Gap 11 (5-15); Aspartate Aminotransferase 23 U/L (13-40); BUN/Creatinine Ratio 8.7 (10.0-20.0); Calcium 8.9 mg/dL (8.7-10.4); Chloride 105 mmol/L (98-107); Total Protein 6.4 g/dL (5.7-8.2)
[2025-01-15 10:23] LABS: Alanine Aminotransferase 47 U/L (7-40); Blood Urea Nitrogen 8 mg/dL (9-23); Carbon Dioxide 19 mmol/L (20-31); Glucose 128 mg/dL (74-106); Potassium 3.4 mmol/L (3.5-5.1); Sodium 135 mmol/L (136-145)
--- NOTE | 2025-01-15 12:45 | ECG ---
[facility] Test Date: 2025-01-14 Test Time: 18:24:16 Pat Name: KARISHMA ENGLAND Department: er Room: [address] [place] [address] Gender: F [employer]: carmel : 1985 Requested By: YUNIER HUFFMAN Order Number: [id number] Reading MD: Miguel Angel Singh Measurements Intervals [place] Rate: 152 P: 76 SD: 118 QRS: 75 QRSD: 69 T: -48 QT: 323 QTc: 514 Interpretive Statements Sinus tachycardia Ventricular premature complex Borderline repolarization abnormality Prolonged QT interval Electronically Signed On 01-17-2025 12:44:05 PDT by Miguel Angel Singh Please click the below link to view image of tracing.
--- NOTE | 2025-01-15 13:07 | DVHPNRES ---
Progress Note Date Seen: January 15, 2025 Resident Creating Document: CAMILLE TAVAREZ RESIDENT Has the PT tested + for MRSA If YES, has PT been informed?: No Medical Necessity Reason Pt with a Central, PICC or Fol: No Medical Necessity Reason History of Presenting illness A 39y old with PMHx anxiety, recurrent UTI and obesity who came to ED due to dysuria. Patient stated dysuria since september 2024, but 2 days back she started to feel like a foreign body in her urethra, back pain, fevers, N/V and palpitations.Denies any hematuria, urgency, frequency, incontinence, fever, chills, or further associated symptoms. Past Medical History: anxiety, recurrent UTI and obesity Surgical History: BTL, Cholecystectomy, Uterine ablation Family History: Cancer, heart bao,Hyperthyroidism, fibromialgia, high lipids; seizures PN: 01/15/2025 Patient is a 39-year-old female past medical history of recurrent UTI who presented to the ED with pain in her right flank with radiation to her right groin. According to the patient, she is known to have recurrent UTI. She was actually seen and manged for UTI in september 2024. Patient was managed and discharged home with a antibiotics and to follow up with her primary care doctor. According to the patient, her UTI did not seem to have resolved. About the same time, her PCP stopped accepting her insurance. Thus, she was struggling to find a PCP. Upon until 2 days ago, patient started having a feeling as though something is in her urethra associated with the pain in the right flank. When patient arrived, initial vitals revealed tachycardia, fever. Initial lab worok showed lactic acidosis. Her urinalysis was also positive for UTI and CT abdomen revealed Delayed right nephrogram with focally diminished superior pole parenchymal attenuation, mild hydroureteronephrosis and perinephric inflammatory change and stranding. No obstructive etiology or calculus identified. These findings are suggestive of sequelae of pyelonephritis. Hepatomegaly and hepatic steatosis. Patient admitted. Subjective Review of Systems Constitutional: Fever, hot, sweating. Denies chills no feeling of malaise HEENT: Denies headache, ear pain, ear discharges, conjunctivitis, nasal discharge throat pain Cardiovascular: Denies chest pain, palpitation, orthopnea, PND, or pedal edema Respiratory: Denies shortness of breath, cough cough, sputum production, hemoptysis, GI: Right upper quadrant pain with radiation to her flank region. abdominal pain, nausea, vomiting, diarrhea, hematemesis, hematochezia, : right lower pain;Denies frequency, urgency, hematuria, Endocrine: Denies unintentional weight gain or weight loss, feeling of hot flashes, [place]: Denies easy bruising, bleeding disorders, epistaxis Musculoskeletal: Denies joint pains, muscle aches Psych: No evidence of depression, melisa, suicidal ideation Objective vital signs Vital Sign Date Time Temp Pulse Resp B/P (MAP) Pulse Ox O2 Delivery O2 Flow Rate FiO2 01/15/25 09:01 101.4 01/15/25 09:00 110 19 115/67 (83) 100 01/15/25 03:30 Room Air* 0 21 Total Intake and Output 01/14/25 01/14/25 01/15/25 15:00 23:00 07:00 Intake Total 0 ml Balance 0 ml medications Current Medications Medications Dose Ordered Sig/Guero Route Start Time Stop Time Status Last Admin Dose Admin Sodium Chloride 1,000 ml @ 120 mls/hr Q8H20M IV 01/14/25 22:15 01/14/25 22:58 120 MLS/HR Metoclopramide HCl 10 mg Q4HP PRN IV 01/14/25 22:15 Acetaminophen 650 mg Q6HP PRN PO 01/14/25 22:15 01/15/25 08:07 650 MG Acetaminophen/ Hydrocodone Bitart 1 tab Q4HP PRN PO 01/14/25 22:15 Ondansetron HCl 4 mg Q4HP PRN IV 01/14/25 22:15 01/15/25 08:16 4 MG Morphine Sulfate 2 mg Q4HPRN PRN IV 01/14/25 22:15 01/15/25 05:23 2 MG Enoxaparin Sodium 40 mg DAILY SC 01/15/25 10:00 01/15/25 08:58 40 MG Piperacillin Sod/ Tazobactam Sod 100 ml @ 25 mls/hr Q8HR IV 01/15/25 06:00 01/15/25 05:01 25 MLS/HR Vancomycin HCl 0 ml @ 0 mls/hr UD IV 01/14/25 22:15 Vancomycin HCl 200 ml @ 200 mls/hr 0900,2100 IV 01/15/25 09:00 01/15/25 08:57 200 MLS/HR Examination General Appearance: Fever, Alert, Oriented X3, Cooperative, No acute distress HEENT: Atraumatic, PERRLA, EOMI, Mucous membrane moist/pink Respiratory: Clear to auscultation, Normal air movement Cardiovascular: Tachycardia, Normal S1, Normal S2, No murmurs, no chest wall tenderness Abdominal: NO distention,RIGHT FLANK tenderness, bowel sounds present, no scars noted Extremities: No clubbing, No cyanosis, No edema, Normal pulses, No tenderness/swelling Skin: No rashes, No breakdown, No significant lesion Neuro: Normal gait, Normal speech, Strength at 5/5 X4 ext, Normal tone, Sensation intact, Cranial nerves 3-12 NL, Reflexes 2+ Psych/Mental Status: Mental status NL, Mood NL laboratory and microbiology Laboratory Tests 01/15/25 09:42 Test 01/15/25 09:42 Range/Units Serum Glucose 128 H 74-106 mg/dL Problem List/Assessment/Plan Problem List/Assessment/Plan ASSESSMENT AND PLAN Sepsis due to complicated UTI --> Urine culture --> Blood culute --> Zosyn IV+ Vancomycin IV --> IV fluids Left pyelonephritis --> Continue antibiotics mild hydroureteronephrosis --> Possible source of infection --> Urology consult Headache --> stat Toradol 15mg stat --> Firstline: Tylenol 600 bid prn for headache --> Second line: Percocet 10 q6hrs for moderate pain --> Thirdline: Morphine 2mg q6hrs prn for severe pain Diarrhea --> Stool WBC, culture Anxiety --> Continue home medication Depression --> Continue home medication CBD use Enoxaparin SC Diet: Regular Case discussed for more than 20 minute: Full code Case and plan discussed with Dr. Solorio Plan discussed with: Patient My Orders My Orders Orders - CAMILLE TAVAREZ Procedure Category Date Status Time * Urology Consult CONS 01/15/25 Transmitted 12:26 Date of Service: January 15, 2025 Billing Provider: BUSTER TORRES MD Common Visit Codes: [id number] INP/OBS CARE(HIGH) CAMILLE TAVAREZ January 15, 2025 13:07 BUSTER TORRES MD January 21, 2025 02:02
[2025-01-15] MEDS ORDERED: ACETAMINOPHEN 325 MG TAB PO PRN (15:00)
[2025-01-15] MEDS: KETOROLAC TROMETH 30 MG/ML 1ML VIAL IV ONE (15:35)
--- NOTE | 2025-01-15 15:53 | DVH ---
INDICATION: rule out obstruction TECHNIQUE: Multiple real-time sonographic images of the kidneys and bladder were obtained. COMPARISON: CT Abdomen and pelvis 01/14/2025 FINDINGS: The right kidney measures 13.4 cm in length, which is normal in size. There is normal echogenicity of the right kidney. No hydronephrosis. The left kidney measures 12.5 cm cm in length, which is normal in size. There is normal echogenicity of the left kidney. No hydronephrosis. 2 cm left renal interpolar region cyst No large intraluminal masses are seen in the bladder. Prior to voiding the bladder volume measures volume 125 cc. No postvoid residual volume is obtained. Incidental finding of increased hepatic echogenicity which may be from hepatic steatosis. IMPRESSION: 2 cm left renal cysts. Otherwise, Normal sonographic appearance of the kidneys. No hydronephrosis. Urinary bladder is unremarkable with urinary bladder volume of 125 cc
[2025-01-16] VITALS (8 sets, daily range): BP systolic 109–131; BP diastolic 55–83; PULSE 75–95; RESP 7–18; TEMP 98.1–100.9; O2SAT 95–100
[2025-01-16 09:46] LABS: Basophils # (auto) 0.1 10 ^3/uL (0-0.2); Basophils % (auto) 0.4 % (0.0-2.0); Eosinophils # (auto) 0.1 10 ^3/uL (0-0.8); Eosinophils % (auto) 0.4 % (0.0-7.0); Hematocrit 35.5 % (36.0-46.0); Hemoglobin 12.1 g/dL (12.2-16.2); Lymphocytes # (auto) 1.8 10 ^3/uL (0.4-5.4); Lymphocytes % (auto) 11.9 % (10.0-50.0); Mean Corpuscular Hemoglobin 30.4 pg (28.0-32.0); Mean Corpuscular Hgb Conc. 34.1 g/dL (32.0-36.0); Mean Corpuscular Volume 89.3 fL (80.0-100.0); Monocytes # (auto) 1.1 10 ^3/uL (0-1.3); Neutrophils # (auto) 12.3 10 ^3/uL (1.6-8.6); Neutrophils % (auto) 80.3 % (37.0-80.0); Platelet Count (auto) 221 10^3/uL (140-450); Red Blood Cells 3.98 10^6/uL (4.0-5.20); Red Cell Distribution Width 12.8 % (11.8-14.3); White Blood Cell 15.3 10^3/uL (4.4-10.8)
[2025-01-16 10:35] LABS: Sodium 137 mmol/L (136-145)
[2025-01-16 10:36] LABS: Anion Gap 11 (5-15); Carbon Dioxide 19 mmol/L (20-31); Chloride 107 mmol/L (98-107); Potassium 3.5 mmol/L (3.5-5.1)
[2025-01-16 10:37] LABS: Calcium 9.3 mg/dL (8.7-10.4)
[2025-01-16 10:41] LABS: BUN/Creatinine Ratio 12.3 (10.0-20.0); Blood Urea Nitrogen 10 mg/dL (9-23); Glucose 80 mg/dL (74-106)
[2025-01-16] MEDS: OXYCODONE W/ ACETAMINOPHEN 5/325MG TABLET PO PRN (12:47)
[2025-01-16] MEDS: METOCLOPRAMIDE HCL 5MG/ml INJ 2ml VIAL IV PRN (12:53)
--- NOTE | 2025-01-16 17:21 | DVHPNRES ---
Progress Note Date Seen: January 16, 2025 Resident Creating Document: CAMILLE TAVAREZ RESIDENT Has the PT tested + for MRSA If YES, has PT been informed?: No Medical Necessity Reason Pt with a Central, PICC or Fol: No Medical Necessity Reason History of Presenting illness A 39y old with PMHx anxiety, recurrent UTI and obesity who came to ED due to dysuria. Patient stated dysuria since september 2024, but 2 days back she started to feel like a foreign body in her urethra, back pain, fevers, N/V and palpitations.Denies any hematuria, urgency, frequency, incontinence, fever, chills, or further associated symptoms. Past Medical History: anxiety, recurrent UTI and obesity Surgical History: BTL, Cholecystectomy, Uterine ablation Family History: Cancer, heart bao,Hyperthyroidism, fibromialgia, high lipids; seizures PN: 01/15/2025 Patient is a 39-year-old female past medical history of recurrent UTI who presented to the ED with pain in her right flank with radiation to her right groin. According to the patient, she is known to have recurrent UTI. She was actually seen and manged for UTI in september 2024. Patient was managed and discharged home with a antibiotics and to follow up with her primary care doctor. According to the patient, her UTI did not seem to have resolved. About the same time, her PCP stopped accepting her insurance. Thus, she was struggling to find a PCP. Upon until 2 days ago, patient started having a feeling as though something is in her urethra associated with the pain in the right flank. When patient arrived, initial vitals revealed tachycardia, fever. Initial lab worok showed lactic acidosis. Her urinalysis was also positive for UTI and CT abdomen revealed Delayed right nephrogram with focally diminished superior pole parenchymal attenuation, mild hydroureteronephrosis and perinephric inflammatory change and stranding. No obstructive etiology or calculus identified. These findings are suggestive of sequelae of pyelonephritis. Hepatomegaly and hepatic steatosis. Patient admitted. PN: 01/16/2025 Patient is seen and examined today this afternoon with family around. She is doing a lot better fever is intermittent comes ago still trying to find the source of the infection. Urology has been consulted for pyelonephritis with hydronephrosis currently. Patient said she vomited everything she eat today. Her wbc is trending downward. Will not change any treatment at this point. Subjective Review of Systems Constitutional: Denies fever no chills no feeling of malaise. Fever improved HEENT: Denies headache, ear pain, ear discharges, conjunctivitis, nasal discharge throat pain Cardiovascular: Denies chest pain, palpitation, orthopnea, PND, or pedal edema Respiratory: Denies shortness of breath, cough cough, sputum production, hemoptysis, VOMITED TODAY GI: Denies abdominal pain, nausea, vomiting, diarrhea, hematemesis, hematochezia, : Denies frequency, urgency, hematuria, Endocrine: Denies unintentional weight gain or weight loss, feeling of hot flashes, Almas: Denies easy bruising, bleeding disorders, epistaxis Musculoskeletal: Denies joint pains, muscle aches Psych: No evidence of depression, melisa, suicidal ideation Objective vital signs Vital Sign Date Time Temp Pulse Resp B/P (MAP) Pulse Ox O2 Delivery O2 Flow Rate FiO2 01/16/25 15:45 73 18 130/78 01/16/25 13:00 99.0 97 99.0 01/16/25 08:00 Room Air* 0 21 Total Intake and Output 01/15/25 01/15/25 01/16/25 15:00 23:00 07:00 Intake Total 1280 ml 1300 ml 800 ml Balance 1280 ml 1300 ml 800 ml medications Current Medications Medications Dose Ordered Sig/Guero Route Start Time Stop Time Status Last Admin Dose Admin Sodium Chloride 1,000 ml @ 120 mls/hr Q8H20M IV 01/14/25 22:15 01/16/25 15:16 120 MLS/HR Metoclopramide HCl 10 mg Q4HP PRN IV 01/14/25 22:15 01/16/25 12:53 10 MG Acetaminophen 650 mg Q6HP PRN PO 01/14/25 22:15 01/16/25 03:19 650 MG Acetaminophen/ Hydrocodone Bitart 1 tab Q4HP PRN PO 01/14/25 22:15 Ondansetron HCl 4 mg Q4HP PRN IV 01/14/25 22:15 01/16/25 15:44 4 MG Morphine Sulfate 2 mg Q4HPRN PRN IV 01/14/25 22:15 01/16/25 15:45 2 MG Enoxaparin Sodium 40 mg DAILY SC 01/15/25 10:00 01/16/25 12:41 40 MG Piperacillin Sod/ Tazobactam Sod 100 ml @ 25 mls/hr Q8HR IV 01/15/25 06:00 01/16/25 15:16 25 MLS/HR Vancomycin HCl 0 ml @ 0 mls/hr UD IV 01/14/25 22:15 Vancomycin HCl 200 ml @ 200 mls/hr 0900,2100 IV 01/15/25 09:00 01/16/25 08:59 200 MLS/HR Acetaminophen 600 mg BID PRN PO 01/15/25 15:00 Morphine Sulfate 2 mg Q6HPRN PRN IV 01/15/25 15:00 Oxycodone/ Acetaminophen 2 tab Q6HP PRN PO 01/15/25 15:00 01/16/25 12:47 2 TAB Examination General Appearance: Alert, Oriented X3, Cooperative, No acute distress HEENT: Atraumatic, PERRLA, EOMI, Mucous membrane moist/pink Respiratory: Clear to auscultation, Normal air movement Cardiovascular: Regular rate, Normal S1, Normal S2, No murmurs, no chest wall tenderness Abdominal: NO distention, no tenderness, bowel sounds present, no scars noted Extremities: No clubbing, No cyanosis, No edema, Normal pulses, No tenderness/swelling Skin: No rashes, No breakdown, No significant lesion Neuro: Normal gait, Normal speech, Strength at 5/5 X4 ext, Normal tone, Sensation intact, Cranial nerves 3-12 NL, Reflexes 2+ Psych/Mental Status: Mental status NL, Mood NL laboratory and microbiology Laboratory Tests 01/16/25 08:27 Test 01/16/25 08:27 Range/Units Serum Glucose 80 74-106 mg/dL Microbiology Date/Time Source Procedure Growth Status 01/15/25 22:00 Stool Stool Culture - Preliminary Resulted 01/15/25 22:00 Stool Shiga Toxin I & II - Final Resulted 01/15/25 22:00 Stool Clostridium difficile Toxin Assay - Final Resulted 01/15/25 02:02 Voided Urine Urine Culture - Preliminary Resulted 01/14/25 19:07 Blood Blood Culture - Preliminary NO GROWTH AFTER 24 HOURS OF INCUBATION. Resulted Problem List/Assessment/Plan Problem List/Assessment/Plan ASSESSMENT AND PLAN Sepsis due to complicated UTI --> Urine culture --> Blood culute --> Zosyn IV+ Vancomycin IV --> IV fluids Left pyelonephritis --> Continue antibiotics mild hydroureteronephrosis --> Possible source of infection --> Urology consult Headache --> stat Toradol 15mg stat --> Firstline: Tylenol 600 bid prn for headache --> Second line: Percocet 10 q6hrs for moderate pain --> Thirdline: Morphine 2mg q6hrs prn for severe pain Diarrhea --> Stool WBC, culture Anxiety --> Continue home medication Depression --> Continue home medication CBD use Enoxaparin SC Diet: Regular Case discussed for more than 20 minute: Full code Case and plan discussed with Dr. Solorio Plan discussed with: Patient Date of Service: January 16, 2025 Billing Provider: BUSTER TORRES MD Common Visit Codes: [id number] INP/OBS CARE(HIGH) CAMILLE TAVAREZ RESIDENT January 16, 2025 17:21 BUSTER TORRES MD January 21, 2025 03:05
[2025-01-17] VITALS (8 sets, daily range): BP systolic 120–133; BP diastolic 77–87; PULSE 71–92; RESP 16–19; TEMP 97.5–99.5; O2SAT 96–100
[2025-01-17 06:30] LABS: Basophils # (auto) 0.1 10 ^3/uL (0-0.2); Basophils % (auto) 0.5 % (0.0-2.0); Eosinophils # (auto) 0.1 10 ^3/uL (0-0.8); Hematocrit 35.5 % (36.0-46.0); Hemoglobin 12.3 g/dL (12.2-16.2); Lymphocytes # (auto) 1.4 10 ^3/uL (0.4-5.4); Lymphocytes % (auto) 12.7 % (10.0-50.0); Mean Corpuscular Hemoglobin 30.8 pg (28.0-32.0); Mean Corpuscular Hgb Conc. 34.8 g/dL (32.0-36.0); Mean Corpuscular Volume 88.6 fL (80.0-100.0); Monocytes # (auto) 0.8 10 ^3/uL (0-1.3); Monocytes % (auto) 7.1 % (0.0-12.0); Neutrophils # (auto) 8.9 10 ^3/uL (1.6-8.6); Neutrophils % (auto) 78.7 % (37.0-80.0); Platelet Count (auto) 262 10^3/uL (140-450); Red Blood Cells 4.01 10^6/uL (4.0-5.20); Red Cell Distribution Width 12.9 % (11.8-14.3); White Blood Cell 11.3 10^3/uL (4.4-10.8)
[2025-01-17 06:43] LABS: Anion Gap 13 (5-15); Calcium 8.7 mg/dL (8.7-10.4); Carbon Dioxide 21 mmol/L (20-31); Chloride 104 mmol/L (98-107); Potassium 3.5 mmol/L (3.5-5.1); Sodium 138 mmol/L (136-145)
[2025-01-17 06:49] LABS: BUN/Creatinine Ratio 10.1 (10.0-20.0); Glucose 75 mg/dL (74-106)
[2025-01-17 06:51] LABS: Blood Urea Nitrogen 8 mg/dL (9-23)
[2025-01-17] MEDS: SODIUM CHLORIDE 0.9% 1,000 ML IV ONE (17:45)
[2025-01-17] MEDS: SODIUM CHLORIDE 0.9% 250 ML IV ONE (17:45)
[2025-01-17] MEDS: FLUCONAZOLE 200MG/100ML 100 ML IV SCH (17:54)
[2025-01-17] MEDS ORDERED: ACETAMINOPHEN 325 MG TAB PO PRN (18:00)
--- NOTE | 2025-01-17 18:04 | DVHPNRES ---
Progress Note Date Seen: January 17, 2025 Resident Creating Document: CAMILLE TAVAREZ RESIDENT Has the PT tested + for MRSA If YES, has PT been informed?: No Medical Necessity Reason Pt with a Central, PICC or Fol: No Medical Necessity Reason History of Presenting illness A 39y old with PMHx anxiety, recurrent UTI and obesity who came to ED due to dysuria. Patient stated dysuria since september 2024, but 2 days back she started to feel like a foreign body in her urethra, back pain, fevers, N/V and palpitations.Denies any hematuria, urgency, frequency, incontinence, fever, chills, or further associated symptoms. Past Medical History: anxiety, recurrent UTI and obesity Surgical History: BTL, Cholecystectomy, Uterine ablation Family History: Cancer, heart bao,Hyperthyroidism, fibromialgia, high lipids; seizures PN: 01/15/2025 Patient is a 39-year-old female past medical history of recurrent UTI who presented to the ED with pain in her right flank with radiation to her right groin. According to the patient, she is known to have recurrent UTI. She was actually seen and manged for UTI in september 2024. Patient was managed and discharged home with a antibiotics and to follow up with her primary care doctor. According to the patient, her UTI did not seem to have resolved. About the same time, her PCP stopped accepting her insurance. Thus, she was struggling to find a PCP. Upon until 2 days ago, patient started having a feeling as though something is in her urethra associated with the pain in the right flank. When patient arrived, initial vitals revealed tachycardia, fever. Initial lab worok showed lactic acidosis. Her urinalysis was also positive for UTI and CT abdomen revealed Delayed right nephrogram with focally diminished superior pole parenchymal attenuation, mild hydroureteronephrosis and perinephric inflammatory change and stranding. No obstructive etiology or calculus identified. These findings are suggestive of sequelae of pyelonephritis. Hepatomegaly and hepatic steatosis. Patient admitted. PN: 01/16/2025 Patient is seen and examined today this afternoon with family around. She is doing a lot better fever is intermittent comes ago still trying to find the source of the infection. Urology has been consulted for pyelonephritis with hydronephrosis currently. Patient said she vomited everything she eat today. Her wbc is trending downward. Will not change any treatment at this point. PN01/17/2025 Patient seen and examined today. He is doing much better fever seems to be subsiding been though she has bike every once in a while. Patient has low-grade fever this morning and also mentioned having vomiting this morning around 5:00 a.m. Of note, patient had a repeat renal ultrasound showed resolved resolved hydronephrosis. Per Urology patient is to follow up with the post discharge for cystoscopy. Given the fluctuating fevers, we will consider changing antibiotics to meropenem and Diflucan. Also we will repeat CT abdomen with contrast today. Repeat CBC and CMP. Subjective Review of Systems Constitutional: Denies fever no chills no feeling of malaise, improved malaise HEENT: Denies headache, ear pain, ear discharges, conjunctivitis, nasal discharge throat pain Cardiovascular: Denies chest pain, palpitation, orthopnea, PND, or pedal edema Respiratory: Denies shortness of breath, cough cough, sputum production, hemoptysis, GI: Still some mild abdominal pain, nausea, vomiting, diarrhea, hematemesis, hematochezia, : Denies frequency, urgency, hematuria, Endocrine: Denies unintentional weight gain or weight loss, feeling of hot flashes, Almas: Denies easy bruising, bleeding disorders, epistaxis Musculoskeletal: Denies joint pains, muscle aches Psych: No evidence of depression, emlisa, suicidal ideation Objective vital signs Vital Sign Date Time Temp Pulse Resp B/P (MAP) Pulse Ox O2 Delivery O2 Flow Rate FiO2 01/17/25 17:18 98.3 78 17 133/82 (99) 97 98.3 01/17/25 08:00 Room Air* 0 21 Total Intake and Output 01/16/25 01/16/25 01/17/25 15:00 23:00 07:00 Intake Total 300 ml 650 ml 600 ml Balance 300 ml 650 ml 600 ml medications Current Medications Medications Dose Ordered Sig/Guero Route Start Time Stop Time Status Last Admin Dose Admin Sodium Chloride 1,000 ml @ 120 mls/hr Q8H20M IV 01/14/25 22:15 01/17/25 17:05 120 MLS/HR Metoclopramide HCl 10 mg Q4HP PRN IV 01/14/25 22:15 01/17/25 10:25 10 MG Acetaminophen 650 mg Q6HP PRN PO 01/14/25 22:15 01/16/25 03:19 650 MG Acetaminophen/ Hydrocodone Bitart 1 tab Q4HP PRN PO 01/14/25 22:15 Ondansetron HCl 4 mg Q4HP PRN IV 01/14/25 22:15 01/17/25 17:13 4 MG Morphine Sulfate 2 mg Q4HPRN PRN IV 01/14/25 22:15 01/17/25 06:36 2 MG Enoxaparin Sodium 40 mg DAILY SC 01/15/25 10:00 01/17/25 10:25 40 MG Piperacillin Sod/ Tazobactam Sod 100 ml @ 25 mls/hr Q8HR IV 01/15/25 06:00 01/17/25 13:26 25 MLS/HR Vancomycin HCl 0 ml @ 0 mls/hr UD IV 01/14/25 22:15 Acetaminophen 600 mg BID PRN PO 01/15/25 15:00 Morphine Sulfate 2 mg Q6HPRN PRN IV 01/15/25 15:00 Oxycodone/ Acetaminophen 2 tab Q6HP PRN PO 01/15/25 15:00 01/16/25 12:47 2 TAB Meropenem 50 ml @ 17 mls/hr Q8HR IV 01/17/25 22:00 UNV Fluconazole 100 ml @ 100 mls/hr DAILY IV 01/18/25 10:00 UNV Examination General Appearance: Alert, Oriented X3, Cooperative, No acute distress HEENT: Atraumatic, PERRLA, EOMI, Mucous membrane moist/pink Respiratory: Clear to auscultation, Normal air movement Cardiovascular: Regular rate, Normal S1, Normal S2, No murmurs, no chest wall tenderness Abdominal: Distention, Tenderness in the mid epigastric right upper quadrant. bowel sounds present, no scars noted Extremities: No clubbing, No cyanosis, No edema, Normal pulses, No tenderness/swelling Skin: No rashes, No breakdown, No significant lesion Neuro: Normal gait, Normal speech, Strength at 5/5 X4 ext, Normal tone, Sensation intact, Cranial nerves 3-12 NL, Reflexes 2+ Psych/Mental Status: Mental status NL, Mood NL laboratory and microbiology Laboratory Tests 01/17/25 05:49 Test 01/17/25 05:49 Range/Units Serum Glucose 75 74-106 mg/dL Microbiology Date/Time Source Procedure Growth Status 01/15/25 22:00 Stool Stool Culture - Preliminary Resulted 01/15/25 22:00 Stool Shiga Toxin I & II - Final Resulted 01/15/25 22:00 Stool Clostridium difficile Toxin Assay - Final Resulted 01/15/25 18:00 Blood Blood Culture - Preliminary NO GROWTH AFTER 24 HOURS OF INCUBATION. Resulted 01/15/25 02:02 Voided Urine Urine Culture - Final Complete Problem List/Assessment/Plan Problem List/Assessment/Plan ASSESSMENT AND PLAN Sepsis due to complicated UTI --> Urine culture --> Blood culute --> Zosyn IV+ Vancomycin IV : Stopped today 01/17/2025 --> IV fluids Left pyelonephritis, hydronephrosis resolved Persistent Fever 01/17/2025 --> CT abdomen --> Start meropen and diflucan mild hydroureteronephrosis --> Possible source of infection --> Urology consult Headache --> stat Toradol 15mg stat --> Firstline: Tylenol 600 bid prn for headache --> Second line: Percocet 10 q6hrs for moderate pain --> Thirdline: Morphine 2mg q6hrs prn for severe pain Diarrhea --> Stool WBC, culture Anxiety --> Continue home medication Depression --> Continue home medication CBD use Enoxaparin SC Diet: Regular Case discussed for more than 16minute: Full code Case and plan discussed with Dr. Solorio Plan discussed with: Patient My Orders My Orders Orders - CAMILLE TAVAREZ RESIDENT Procedure Category Date Status Time Meropenem 1gm Ivpb PHA 01/17/25 In Process (Merrem 1gm/ Ns) 22:00 Comprehensive LAB 01/18/25 Verified Metabolic Panel 04:[address] Ct Abd Pelvis W CT 01/17/25 Logged Con-Oral & Iv 17:41 Full Liq Diet DIET 01/17/25 Transmitted Dinner Acetaminophen Tablet PHA 01/17/25 In Process (Tylenol Tablet) 18:00 Fluconazole PHA 01/17/25 In Process 200mg/100ml (Diflucan 18:00 NS PHA 01/17/25 Transmitted 17:45 NS PHA 01/17/25 Transmitted 17:45 Date of Service: January 17, 2025 Billing Provider: BUSTER TORRES MD Common Visit Codes: [id number] INP/OBS CARE(HIGH) CAMILLE TAVAREZ RESIDENT January 17, 2025 18:04 BUSTER TORRES MD January 21, 2025 03:10
[2025-01-17] MEDS ORDERED: VANCOMYCIN 1GM/200ML PM 200 ML IV SCH (20:00)
[2025-01-17] MEDS: MEROPENEM 1GM IVPB 50 ML IV SCH (22:04)
[2025-01-18] VITALS (7 sets, daily range): BP systolic 114–140; BP diastolic 66–86; PULSE 59–79; RESP 16–20; TEMP 98–98.9; O2SAT 95–98
[2025-01-18] MEDS: MORPHINE SULFATE INJ 2 MG/ml SYRG IV PRN (05:29)
[2025-01-18 06:25] LABS: Hematocrit 35.1 % (36.0-46.0); Hemoglobin 12.3 g/dL (12.2-16.2); Mean Corpuscular Hgb Conc. 35.1 g/dL (32.0-36.0); Mean Corpuscular Volume 88.4 fL (80.0-100.0); Platelet Count (auto) 300 10^3/uL (140-450); Red Blood Cells 3.97 10^6/uL (4.0-5.20); Red Cell Distribution Width 12.6 % (11.8-14.3); White Blood Cell 10.3 10^3/uL (4.4-10.8)
[2025-01-18 06:29] LABS: Basophils % (manual) 0 (0.0-2.0); Blast Cells 0; Eosinophils % (manual) 0 (0-7); Metamyelocytes % 0; Promyelocytes % 0; Reactive Lymphocytes 0
[2025-01-18 06:41] LABS: Alanine Aminotransferase 26 U/L (7-40); Alkaline Phosphatase 83 U/L (46-116); Anion Gap 13 (5-15); BUN/Creatinine Ratio 7.8 (10.0-20.0); Calcium 8.9 mg/dL (8.7-10.4); Carbon Dioxide 24 mmol/L (20-31); Chloride 103 mmol/L (98-107); Glucose 84 mg/dL (74-106); Sodium 140 mmol/L (136-145); Total Protein 6.7 g/dL (5.7-8.2)
[2025-01-18 06:42] LABS: Albumin 4.1 g/dL (3.2-4.8); Aspartate Aminotransferase 17 U/L (13-40); Bilirubin, Total 0.8 mg/dL (0.2-1.0)
[2025-01-18 06:43] LABS: Blood Urea Nitrogen 6 mg/dL (9-23); Potassium 3.3 mmol/L (3.5-5.1)
[2025-01-18 07:09] LABS: Band Neutrophils % (manual) 1; Lymphocytes % (manual) 30 (10.0-50.0); Monocytes % (manual) 9 (0-12); Myelocytes % 1
[2025-01-18 07:10] LABS: Large Platelets FEW; Platelet Estimate Adequate
[2025-01-18] MEDS: POTASSIUM EFFERVESENT TAB 25 MEQ PO ONE (08:25)
[2025-01-18] MEDS ORDERED: IOHEXOL 300 MG/ML 100ML BOTTLE IJ ONE (09:16)
--- NOTE | 2025-01-18 10:07 | DVH ---
CT CT AB PEL WITH IV CON ONLY INDICATION: RECURRENT FEVERS; R/O ABD ABSCESS EXAM DATE: 01/18/2025 09:20 AM COMPARISON: CT CT AB PEL WITH IV CON ONLY on DOS: 01/14/25 RADIATION DOSE: CTDIvol: 25.45 mGy, DLP: 1272.76 mGy*cm PROCEDURE: Helical CT images were obtained of the abdomen and pelvis with IV contrast Sagittal and co haroon reconstructions are provided. ORAL CONTRAST: None. ADDITIONAL IMAGES / REFORMATS: None All CT s cans at this medical facility are performed using dose modulation techniques as appropriate to a perf ormed exam including the following: Automated exposure control was utilized; adjustment of the MA and /or KV according to patient size; and use of iterative reconstruction technique. FINDINGS: LUNG BASE: Normal. LIVER: Normal. GALLBLADDER AND BILIARY TREE: Cholecystectomy clips. No intra- or extrahepatic biliary ductal dilatio n. PANCREAS: Normal. SPLEEN: Normal. BOWEL: Normal. Normal appendix. ADRENALS: Normal. KIDNEYS AND URETER: Inflammatory changes in the upper pole of the right kidney could be seen with feroz lonephritis. Uncinate non obstructive left kidney stone. BLADDER: Normal. REPRODUCTIVE ORGANS: Normal. LYMPH NODES:No lymphadenopathy. PERITONEUM: No ascites or free air. No other fluid collection. VESSELS: Scattered atherosclerotic calcifications are noted. RETROPERITONEUM: Normal. ABDOMINAL WALL: Normal. BONES: Scattered osseous degenerative changes are noted. IMPRESSION: Inflammatory changes in the upper pole of the right kidney could be seen with pyelonephritis.
[2025-01-18] MEDS: CEFEPIME 1GM/ 50ML 50 ML IV SCH (14:52)
--- NOTE | 2025-01-18 15:39 | DVHPNRES ---
Progress Note Date Seen: January 18, 2025 Resident Creating Document: CAMILLE TAVAREZ RESIDENT Has the PT tested + for MRSA If YES, has PT been informed?: No Medical Necessity Reason Pt with a Central, PICC or Fol: No Medical Necessity Reason History of Presenting illness A 39y old with PMHx anxiety, recurrent UTI and obesity who came to ED due to dysuria. Patient stated dysuria since september 2024, but 2 days back she started to feel like a foreign body in her urethra, back pain, fevers, N/V and palpitations.Denies any hematuria, urgency, frequency, incontinence, fever, chills, or further associated symptoms. Past Medical History: anxiety, recurrent UTI and obesity Surgical History: BTL, Cholecystectomy, Uterine ablation Family History: Cancer, heart bao,Hyperthyroidism, fibromialgia, high lipids; seizures PN: 01/15/2025 Patient is a 39-year-old female past medical history of recurrent UTI who presented to the ED with pain in her right flank with radiation to her right groin. According to the patient, she is known to have recurrent UTI. She was actually seen and manged for UTI in september 2024. Patient was managed and discharged home with a antibiotics and to follow up with her primary care doctor. According to the patient, her UTI did not seem to have resolved. About the same time, her PCP stopped accepting her insurance. Thus, she was struggling to find a PCP. Upon until 2 days ago, patient started having a feeling as though something is in her urethra associated with the pain in the right flank. When patient arrived, initial vitals revealed tachycardia, fever. Initial lab worok showed lactic acidosis. Her urinalysis was also positive for UTI and CT abdomen revealed Delayed right nephrogram with focally diminished superior pole parenchymal attenuation, mild hydroureteronephrosis and perinephric inflammatory change and stranding. No obstructive etiology or calculus identified. These findings are suggestive of sequelae of pyelonephritis. Hepatomegaly and hepatic steatosis. Patient admitted. PN: 01/16/2025 Patient is seen and examined today this afternoon with family around. She is doing a lot better fever is intermittent comes ago still trying to find the source of the infection. Urology has been consulted for pyelonephritis with hydronephrosis currently. Patient said she vomited everything she eat today. Her wbc is trending downward. Will not change any treatment at this point. PN01/17/2025 Patient seen and examined today. He is doing much better fever seems to be subsiding been though she has bike every once in a while. Patient has low-grade fever this morning and also mentioned having vomiting this morning around 5:00 a.m. Of note, patient had a repeat renal ultrasound showed resolved resolved hydronephrosis. Per Urology patient is to follow up with the post discharge for cystoscopy. Given the fluctuating fevers, we will consider changing antibiotics to meropenem and Diflucan. Also we will repeat CT abdomen with contrast today. Repeat CBC and CMP. PN: 01/18/2025 Patient seen and examined today. she is doing much better. Started her on meropenem and diflucan yesterday. Still blood and urine culture did not grow any microorganism. Fever is improved, wbc is within normal limits. and vitals are stable. She is tolerating full liquid diet. Subjective Review of Systems Constitutional: Denies fever no chills no feeling of malaise, improved malaise HEENT: Denies headache, ear pain, ear discharges, conjunctivitis, nasal discharge throat pain Cardiovascular: Denies chest pain, palpitation, orthopnea, PND, or pedal edema Respiratory: Denies shortness of breath, cough cough, sputum production, hemoptysis, GI: Improved abdominal pain, nausea, vomiting, diarrhea, hematemesis, hematochezia, : Denies frequency, urgency, hematuria, Endocrine: Denies unintentional weight gain or weight loss, feeling of hot flashes, Almas: Denies easy bruising, bleeding disorders, epistaxis Musculoskeletal: Denies joint pains, muscle aches Psych: No evidence of depression, melisa, suicidal ideation Objective vital signs Vital Sign Date Time Temp Pulse Resp B/P (MAP) Pulse Ox O2 Delivery O2 Flow Rate FiO2 01/18/25 13:00 98.0 76 20 140/86 (104) 97 98.0 01/18/25 08:05 Room Air* 0 21 Total Intake and Output 01/17/25 01/17/25 01/18/25 15:00 23:00 07:00 Intake Total 737 ml 350 ml Balance 737 ml 350 ml medications Current Medications Medications Dose Ordered Sig/Guero Route Start Time Stop Time Status Last Admin Dose Admin Sodium Chloride 1,000 ml @ 120 mls/hr Q8H20M IV 01/14/25 22:15 01/18/25 10:20 120 MLS/HR Metoclopramide HCl 10 mg Q4HP PRN IV 01/14/25 22:15 01/17/25 10:25 10 MG Acetaminophen/ Hydrocodone Bitart 1 tab Q4HP PRN PO 01/14/25 22:15 Ondansetron HCl 4 mg Q4HP PRN IV 01/14/25 22:15 01/18/25 05:24 4 MG Enoxaparin Sodium 40 mg DAILY SC 01/15/25 10:00 01/18/25 10:18 40 MG Morphine Sulfate 2 mg Q6HPRN PRN IV 01/15/25 15:00 01/18/25 05:29 2 MG Acetaminophen 650 mg BID PRN PO 01/17/25 18:00 Cefepime HCl 50 ml @ 12.5 mls/hr Q8HR IV 01/18/25 14:00 01/18/25 14:52 12.5 MLS/HR Examination General Appearance: Alert, Oriented X3, Cooperative, No acute distress HEENT: Atraumatic, PERRLA, EOMI, Mucous membrane moist/pink Respiratory: Clear to auscultation, Normal air movement Cardiovascular: Regular rate, Normal S1, Normal S2, No murmurs, no chest wall tenderness Abdominal: Distention, improving tenderness in the mid epigastric right upper quadrant. bowel sounds present, no scars noted Extremities: No clubbing, No cyanosis, No edema, Normal pulses, No tenderness/swelling Skin: No rashes, No breakdown, No significant lesion Neuro: Normal gait, Normal speech, Strength at 5/5 X4 ext, Normal tone, Sensation intact, Cranial nerves 3-12 NL, Reflexes 2+ Psych/Mental Status: Mental status NL, Mood NL laboratory and microbiology Laboratory Tests 01/18/25 05:17 Test 01/18/25 05:17 Range/Units Serum Glucose 84 74-106 mg/dL Microbiology Date/Time Source Procedure Growth Status 01/15/25 22:00 Stool Stool Culture - Preliminary Resulted 01/15/25 22:00 Stool Shiga Toxin I & II - Final Resulted 01/15/25 22:00 Stool Clostridium difficile Toxin Assay - Final Resulted 01/15/25 18:00 Blood Blood Culture - Preliminary NO GROWTH AFTER 48 HOURS OF INCUBATION. Resulted 01/15/25 02:02 Voided Urine Urine Culture - Final Complete Problem List/Assessment/Plan Problem List/Assessment/Plan ASSESSMENT AND PLAN Sepsis due to complicated UTI --> Urine culture --> Blood culute --> Zosyn IV+ Vancomycin IV : Stopped today 01/17/2025 --> IV fluids Left pyelonephritis, hydronephrosis resolved Persistent Fever 01/17/2025 --> CT abdomen --> Start meropen and diflucan mild hydroureteronephrosis --> Possible source of infection --> Urology consult Headache --> stat Toradol 15mg stat --> Firstline: Tylenol 600 bid prn for headache --> Second line: Percocet 10 q6hrs for moderate pain --> Thirdline: Morphine 2mg q6hrs prn for severe pain Diarrhea --> Stool WBC, culture Anxiety --> Continue home medication Depression --> Continue home medication CBD use Enoxaparin SC Diet:full liquid diet Plant to discharge home tomorrow on IV medication broad spectrum as his blood and urine culture did not grow anything. Case discussed for more than 16 minutes: Full code Case and plan discussed with Dr. Solorio Plan discussed with: Patient My Orders My Orders Orders - CAMILLE TAVAREZ Procedure Category Date Status Time Full Liq Diet DIET 01/17/25 Transmitted Dinner Acetaminophen Tablet PHA 01/17/25 In Process (Tylenol Tablet) 18:00 Ct Ab Pel With Iv Con CT 01/18/25 Resulted Only 09:00 Cefepime 1gm/ 50ml PHA 01/18/25 In Process (Maxipime 1gm/50ml) 14:00 Date of Service: January 18, 2025 Billing Provider: BUSTER TORRES MD Common Visit Codes: [id number] INP/OBS CARE(HIGH) CAMILLE TAVAREZ RESIDENT January 18, 2025 15:39 BUSTER TORRES MD January 21, 2025 00:27
[2025-01-19 01:00] VITALS: BP 115/58; PULSE 69; RESP 18; TEMP 98.4; O2SAT 97
[2025-01-19 05:00] VITALS: BP 116/69; PULSE 82; RESP 18; TEMP 97.9; O2SAT 97
[2025-01-19 06:09] LABS: Hematocrit 36.4 % (36.0-46.0); Hemoglobin 12.6 g/dL (12.2-16.2); Mean Corpuscular Hemoglobin 30.7 pg (28.0-32.0); Mean Corpuscular Hgb Conc. 34.8 g/dL (32.0-36.0); Mean Corpuscular Volume 88.4 fL (80.0-100.0); Platelet Count (auto) 336 10^3/uL (140-450); Red Blood Cells 4.12 10^6/uL (4.0-5.20); Red Cell Distribution Width 12.7 % (11.8-14.3); White Blood Cell 10.1 10^3/uL (4.4-10.8)
[2025-01-19 06:23] LABS: Anion Gap 11 (5-15); Carbon Dioxide 26 mmol/L (20-31); Chloride 102 mmol/L (98-107); Sodium 139 mmol/L (136-145)
[2025-01-19 06:29] LABS: BUN/Creatinine Ratio 7.6 (10.0-20.0)
[2025-01-19 06:30] LABS: Blood Urea Nitrogen 6 mg/dL (9-23); Glucose 111 mg/dL (74-106)
[2025-01-19 06:57] LABS: Band Neutrophils % (manual) 0; Basophils % (manual) 0 (0.0-2.0); Blast Cells 0; Metamyelocytes % 0; Promyelocytes % 0; Reactive Lymphocytes 0
[2025-01-19 08:37] VITALS: BP 113/67; PULSE 61; RESP 16; TEMP 98.6; O2SAT 96
[2025-01-19 09:37] LABS: Eosinophils % (manual) 2 (0-7); Lymphocytes % (manual) 17 (10.0-50.0); Monocytes % (manual) 11 (0-12); Myelocytes % 2; Platelet Estimate Adequate
[2025-01-19] MEDS: POTASSIUM CHLORIDE 60 MEQ, LIDOCAINE 1% (LOCAL ANESTH.) 6 ML in SODIUM CHL 0.9% 500 ML IV ONE (11:37)
[2025-01-19 13:00] VITALS: BP 109/71; PULSE 67; RESP 15; TEMP 98.3; O2SAT 94
--- NOTE | 2025-01-19 15:27 | DVHDSRES ---
Discharge Summary Date of Admission Resident Creating Document: CAMILLE TAVAREZ RESIDENT January 14, 2025 at 22:04 Date of Discharge: January 19, 2025 Admitting Diagnosis Right flank pain Labs/Diagnostic Data: PATIENT: KARISHMA ENGLAND ACCT: [id number] UNIT: [id number] : 1985 LOC: EAST ROOM / BED: [facility] / AGE / SEX: 39 / F ADM STATUS: ADM IN SERVICE 1459 ORDERING PHYSICIAN: CAMILLE TAVAREZ PROCEDURE(s): KIDUS - KIDNEY REASON: rule out obstruction ORDER NUMBER(s): [id number], ACCESSION NUMBER(s): [id number] INDICATION: rule out obstruction TECHNIQUE: Multiple real-time sonographic images of the kidneys and bladder were obtained. COMPARISON: CT Abdomen and pelvis 01/14/2025 FINDINGS: The right kidney measures 13.4 cm in length, which is normal in size. There is normal echogenicity of the right kidney. No hydronephrosis. The left kidney measures 12.5 cm cm in length, which is normal in size. There is normal echogenicity of the left kidney. No hydronephrosis. 2 cm left renal interpolar region cyst No large intraluminal masses are seen in the bladder. Prior to voiding the bladder volume measures volume 125 cc. No postvoid residual volume is obtained. Incidental finding of increased hepatic echogenicity which may be from hepatic steatosis. IMPRESSION: 2 cm left renal cysts. Otherwise, Normal sonographic appearance of the kidneys. No hydronephrosis. Urinary bladder is unremarkable with urinary bladder volume of 125 cc ATED BY: SOFI SILVERMAN DO DICTATED DATE/TIME: 01/15/25 1551 PATIENT: KARISHMA ENGLAND ACCT: [id number] UNIT: [id number] : 1985 LOC: OVERFLOW ROOM / BED: 1010-ER / A AGE / SEX: 39 / F ADM STATUS: ADM IN SERVICE 2204 ORDERING PHYSICIAN: JODY MAYFIELD PROCEDURE(s): ABPLIV - CT AB PEL WITH IV CON ONLY REASON: sepsis ORDER NUMBER(s): [id number], ACCESSION NUMBER(s): [id number] Exam: CT CT AB PEL WITH IV CON ONLY History: sepsis COMPARISON: None Technique: Multidetector spiral CT of the abdomen and pelvis was performed from lung bases to pubic symphysis. Intravenous contrast was administered during this examination. Portal venous imaging was obtained. Axial, coronal and sagittal multiplanar reformats were performed by the technologist on a separate workstation. Radiation Dose : 1. Abdomen/Pelvis: CTDIvol 22.26 mGy, DLP 1139.55 mGy*cm. CONTRAST: Type of contrast: Omnipaque 300 Contrast injected: 100 ml Contrast ingested: None Findings: Lung Bases: No acute or significant lung base finding. Normal heart size. No pleural or pericardial effusion. Liver: The liver is enlarged, measuring 22.7 cm in craniocaudal dimension. There is diffuse hepatic steatosis. No focal lesions. Normal hepatic vascular enhancement. Gallbladder and Biliary Tree: Status post cholecystectomy. Spleen: Unremarkable Pancreas: The pancreas is normal in appearance without focal lesions or abnormal enhancement. Adrenal Glands: Unremarkable Kidneys: Delayed right nephrogram with focally diminished attenuation within the superior pole and mild right hydroureteronephrosis with moderate perinephric inflammatory change and stranding. No identifiable obstructing calculus. Left interpolar renal cyst measures 2.1 cm. No evidence of left hydronephrosis. Bladder: Unremarkable Bowel: The stomach is grossly normal in appearance. Small bowel and colon are normal in caliber and distribution. The appendix is not visualized; however, no secondary findings of acute appendicitis identified. Ascites: Absent Lymphadenopathy: No mesenteric, retroperitoneal or periportal lymphadenopathy. Abdominal Wall and Mesentery: Unremarkable. Vasculature: The visualized abdominal aorta is normal in size and caliber. Abdominal and pelvic vessels demonstrate normal enhancement. Pelvic Organs: Unremarkable Musculoskeletal: No aggressive focal bony lesions, acute fractures or dislocation. IMPRESSION: 1. Delayed right nephrogram with focally diminished superior pole parenchymal attenuation, mild hydroureteronephrosis and perinephric inflammatory change and stranding. No obstructive etiology or calculus identified. These findings are suggestive of sequelae of pyelonephritis. 2. Hepatomegaly and hepatic steatosis. Radiation optimization: All CT scans at this facility use at least one of these dose optimization techniques: automated exposure control mA and/or kV adjustment per patient size (includes targeted exams where dose is matched to clinical indication) or iterative reconstruction. ATED BY: ESVIN CARO MD DICTATED DATE/TIME: 01/14/252301 PATIENT: KARISHMA ENGLAND ACCT: [id number] UNIT: [id number] : 1985 LOC: ER ROOM / BED: / AGE / SEX: 39 / F ADM STATUS: REG ER SERVICE 531 ORDERING PHYSICIAN: YUNIER HUFFMAN MD PROCEDURE(s): CXR1 - CHEST XRAY 1 VIEW REASON: tachycardia ORDER NUMBER(s): [id number], ACCESSION NUMBER(s): [id number] CHEST RADIOGRAPH Indication: tachycardia Technique: Single frontal view of the chest was obtained COMPARISON: None FINDINGS: Lines and Tubes: None Lungs: Clear Pleura: No effusion. No pneumothorax. Cardiomediastinal contours: Unremarkable IMPRESSION: No abnormality. ATED BY: MOSES CAO MD DICTATED DATE/TIME: 01/14/252028 Laboratory Results Test 01/19/25 05:16 01/18/25 05:17 01/17/25 08:44 01/17/25 05:49 White Blood Count 10.1 10^3/uL (4.4-10.8) Red Blood Count 4.12 10^6/uL (4.0-5.20) Hemoglobin 12.6 g/dL (12.2-16.2) Hematocrit 36.4 % (36.0-46.0) Mean Corpuscular Volume 88.4 fL (80.0-100.0) Mean Corpuscular Hemoglobin 30.7 pg (28.0-32.0) Mean Corpuscular Hemoglobin Concent 34.8 g/dL (32.0-36.0) Red Cell Distribution Width 12.7 % (11.8-14.3) Platelet Count 336 10^3/uL (140-450) Mean Platelet Volume 7.8 fL (6.9-10.8) Neutrophils (%) (Auto) % (37.0-80.0) Lymphocytes (%) (Auto) % (10.0-50.0) Monocytes (%) (Auto) % (0.0-12.0) Basophils (%) (Auto) % (0.0-2.0) Neutrophils # (Auto) 10 ^3/uL (1.6-8.6) Lymphocytes # (Auto) 10 ^3/uL (0.4-5.4) Monocytes # (Auto) 10 ^3/uL (0-1.3) Differential Total Cells Counted 100.0 (100) Neutrophils % (Manual) 68 (37.0-80.0) Band Neutrophils % (Manual) 0 Lymphocytes % (Manual) 17 (10.0-50.0) Monocytes % (Manual) 11 (0-12) Eosinophils % (Manual) 2 (0-7) Basophils % (Manual) 0 (0.0-2.0) Metamyelocytes % (manual) 0 Myelocytes % (Manual) 2 Promyelocytes % (Manual) 0 Blast Cells % (Manual) 0 Reactive Lymphocytes 0 Platelet Estimate Adequate Sodium Level 139 mmol/L (136-145) Potassium Level 3.0 mmol/L (3.5-5.1) Chloride Level 102 mmol/L (98-107) Carbon Dioxide Level 26 mmol/L (20-31) Anion Gap 11 (5-15) Blood Urea Nitrogen 6 mg/dL (9-23) Creatinine 0.79 mg/dL (0.550-1.02) Glomerular Filtration Rate Calc 98 mL/min (>90) BUN/Creatinine Ratio 7.6 (10.0-20.0) Serum Glucose 111 mg/dL (74-106) Calcium Level 9.0 mg/dL (8.7-10.4) Nucleated Red Blood Cells 2.0 % Large Platelets Few Total Bilirubin 0.8 mg/dL (0.2-1.0) Aspartate Amino Transferase (AST) 17 U/L (13-40) Alanine Aminotransferase (ALT) 26 U/L (7-40) Alkaline Phosphatase 83 U/L (46-116) Total Protein 6.7 g/dL (5.7-8.2) Albumin 4.1 g/dL (3.2-4.8) Vancomycin Level Trough 7.8 ug/mL (5-10) Eosinophils (%) (Auto) 1.0 % (0.0-7.0) Eosinophils # (Auto) 0.1 10 ^3/uL (0-0.8) Basophils # (Auto) 0.1 10 ^3/uL (0-0.2) Test 01/15/25 22:00 01/15/25 09:42 01/14/25 21:04 01/14/25 19:07 Stool Occult Blood Positive (Negative) Stool Occult Blood Sample #3 (Negative) Stool for White Cells Rare Hemoglobin A1c 4.9 % A1C (<5.7) Thyroid Stimulating Hormone (TSH) 1.49 uIU/mL (0.55-4.78) Lactic Acid Level 1.8 mmol/L (0.4-2.0) Red Blood Cell Morphology Normal Urine Color Light-orange (Yellow) Urine Clarity Turbid (Clear) Urine pH 6.0 (5.0-9.0) Urine Specific [place] 1.026 (1.001-1.035) Urine Protein 2+ (Negative) Urine Ketones 2+ (Negative) Urine Blood 2+ /uL (Negative) Urine Nitrite Negative (Negative) Urine Bilirubin Negative (Negative) Urine Urobilinogen Normal mg/dL (Negative) Urine Leukocyte Esterase 2+ /uL (Negative) Urine RBC 20 /hpf (0 - 4) Urine Microscopic WBC 59 /HPF (0-5) Urine Squamous Epithelial Cells Mod /hpf (<5) Urine Bacteria Few /hpf (None Seen) Urine Mucus Few (None Seen) Urine Glucose Trace mg/dL (Normal) Troponin I High Sensitivity < 3 ng/L (</=34) B-Type Natriuretic Peptide 13.01 pg/mL (0-100) Urine Opiates Screen Neg (NEGATIVE) Urine Fentanyl Screen Neg (NEGATIVE) Urine Barbiturates Screen Neg (NEGATIVE) Urine Phencyclidine Screen Neg (NEGATIVE) Urine Amphetamines Screen Neg (NEGATIVE) Urine Benzodiazepines Screen Neg (NEGATIVE) Urine Cocaine Screen Neg (NEGATIVE) Urine Cannabinoids Screen Pos (NEGATIVE) Other Laboratory Tests 01/19/25 05:16 Brief Hx & Hospital Course: History of Presenting illness A 39y old with PMHx anxiety, recurrent UTI and obesity who came to ED due to dysuria. Patient stated dysuria since september 2024, but 2 days back she started to feel like a foreign body in her urethra, back pain, fevers, N/V and palpitations.Denies any hematuria, urgency, frequency, incontinence, fever, chills, or further associated symptoms. Past Medical History: anxiety, recurrent UTI and obesity Surgical History: BTL, Cholecystectomy, Uterine ablation Family History: Cancer, heart bao,Hyperthyroidism, fibromialgia, high lipids; seizures Brief Hospital course Patient is a 39-year-old female past medical history of recurrent UTI who presented to the ED with pain in her right flank with radiation to her right groin. According to the patient, she is known to have recurrent UTI. She was actually seen and manged for UTI in september 2024. Patient was managed and discharged home with a antibiotics and to follow up with her primary care doctor. According to the patient, her UTI did not seem to have resolved. About the same time, her PCP stopped accepting her insurance. Thus, she was struggling to find a PCP. Upon until 2 days ago, patient started having a feeling as though something is in her urethra associated with the pain in the right flank. When patient arrived, initial vitals revealed tachycardia, fever. Initial lab worok showed lactic acidosis. Her urinalysis was also positive for UTI and CT abdomen revealed Delayed right nephrogram with focally diminished superior pole parenchymal attenuation, mild hydroureteronephrosis and perinephric inflammatory change and stranding. No obstructive etiology or calculus identified. These findings are suggestive of sequelae of pyelonephritis. Hepatomegaly and hepatic steatosis. Patient admitted. PN: 01/16/2025 Patient is seen and examined today this afternoon with family around. She is doing a lot better fever is intermittent comes ago still trying to find the source of the infection. Urology has been consulted for pyelonephritis with hydronephrosis currently. Patient said she vomited everything she eat today. Her wbc is trending downward. Will not change any treatment at this point. PN01/17/2025 Patient seen and examined today. He is doing much better fever seems to be subsiding been though she has bike every once in a while. Patient has low-grade fever this morning and also mentioned having vomiting this morning around 5:00 a.m. Of note, patient had a repeat renal ultrasound showed resolved resolved hydronephrosis. Per Urology patient is to follow up with the post discharge for cystoscopy. Given the fluctuating fevers, we will consider changing antibiotics to meropenem and Diflucan. Also we will repeat CT abdomen with contrast today. Repeat CBC and CMP. PN: 01/18/2025 Patient seen and examined today. she is doing much better. Started her on meropenem and diflucan yesterday. Still blood and urine culture did not grow any microorganism. Fever is improved, wbc is within normal limits. and vitals are stable. She is tolerating full liquid diet. Review of systems Constitutional: Denies fever no chills no feeling of malaise HEENT: Denies headache, ear pain, ear discharges, conjunctivitis, nasal discharge throat pain Cardiovascular: Denies chest pain, palpitation, orthopnea, PND, or pedal edema Respiratory: Denies shortness of breath, cough cough, sputum production, hemoptysis, GI: Denies abdominal pain, nausea, vomiting, diarrhea, hematemesis, hematochezia, : Denies frequency, urgency, hematuria, Endocrine: Denies unintentional weight gain or weight loss, feeling of hot flashes, Almas: Denies easy bruising, bleeding disorders, epistaxis Musculoskeletal: Denies joint pains, muscle aches Psych: No evidence of depression, melisa, suicidal ideation Examination General Appearance: Alert, Oriented X3, Cooperative, No acute distress HEENT: Atraumatic, PERRLA, EOMI, Mucous membrane moist/pink Respiratory: Clear to auscultation, Normal air movement Cardiovascular: Regular rate, Normal S1, Normal S2, No murmurs, no chest wall tenderness Abdominal: NO distention, no tenderness, bowel sounds present, no scars noted Extremities: No clubbing, No cyanosis, No edema, Normal pulses, No tenderness/swelling Skin: No rashes, No breakdown, No significant lesion Neuro: Normal gait, Normal speech, Strength at 5/5 X4 ext, Normal tone, Sensation intact, Cranial nerves 3-12 NL, Reflexes 2+ Psych/Mental Status: Mental status NL, Mood NL Diagnoses Sepsis due to complicated UTI Left pyelonephritis, hydronephrosis resolved Persistent Fever 01/17/2025 mild hydroureteronephrosis Headache Diarrhea Anxiety Depression CBD use Discharge plan Discharged home Home with midline for continuation of IV antibiotics IV cefepime 1gm 3 times a day for 7 days with home health On the 7 days, do a CBC CMP and follow up with the primary care doctor to go over Report at the discharge Clinic in 7 days for follow up Follow up with the PCP Discharge plan discussed with Dr. Solorio Final Diagnosis/Problems List Sepsis due to complicated UTI Left pyelonephritis, hydronephrosis resolved Persistent Fever 01/17/2025 mild hydroureteronephrosis Headache Diarrhea Anxiety Depression CBD use Discharge Disposition: Home with Health Services Discharge Instruct/Medications Diet: Regular Diet comment: Or as can tolerate Activity: No Restrictions, As Tolerated Follow Up/Referral: 7-14 days at the discharge clinic Medications: Cefepime 1gm tid for 7 days Discharge Statement: "Patient was advised to return to the ER or call 911 if any headaches, dizziness, shortness of breath, chest pain, abdominal pain, bleeding, fevers, or worsening of medical condition. Patient was counseled about treatment plan, medications, possible side effects, patientverbalized understanding. All questions were answered to the best of my ability. This discharge took greater then 30 minutes in planning, reviewing documentation, counseling the patient, and discussing with other team members." ASSESSMENT ASSESSMENT Assessment Sepsis due to complicated UTI Left pyelonephritis, hydronephrosis resolved Persistent Fever 01/17/2025 mild hydroureteronephrosis Headache Diarrhea Anxiety Depression CBD use CAMILLE TAVAREZ RESIDENT January 19, 2025 15:27
[2025-01-19 17:00] VITALS: BP 132/89; PULSE 82; RESP 0; TEMP 98; O2SAT 96
--- NOTE | 2025-01-19 17:49 | DVHPNRES ---
Progress Note Date Seen: January 19, 2025 Resident Creating Document: CAMILLE TAVAREZ RESIDENT Has the PT tested + for MRSA If YES, has PT been informed?: No Medical Necessity Reason Pt with a Central, PICC or Fol: No Medical Necessity Reason History of Presenting illness A 39y old with PMHx anxiety, recurrent UTI and obesity who came to ED due to dysuria. Patient stated dysuria since september 2024, but 2 days back she started to feel like a foreign body in her urethra, back pain, fevers, N/V and palpitations.Denies any hematuria, urgency, frequency, incontinence, fever, chills, or further associated symptoms. Past Medical History: anxiety, recurrent UTI and obesity Surgical History: BTL, Cholecystectomy, Uterine ablation Family History: Cancer, heart bao,Hyperthyroidism, fibromialgia, high lipids; seizures PN: 01/15/2025 Patient is a 39-year-old female past medical history of recurrent UTI who presented to the ED with pain in her right flank with radiation to her right groin. According to the patient, she is known to have recurrent UTI. She was actually seen and manged for UTI in september 2024. Patient was managed and discharged home with a antibiotics and to follow up with her primary care doctor. According to the patient, her UTI did not seem to have resolved. About the same time, her PCP stopped accepting her insurance. Thus, she was struggling to find a PCP. Upon until 2 days ago, patient started having a feeling as though something is in her urethra associated with the pain in the right flank. When patient arrived, initial vitals revealed tachycardia, fever. Initial lab worok showed lactic acidosis. Her urinalysis was also positive for UTI and CT abdomen revealed Delayed right nephrogram with focally diminished superior pole parenchymal attenuation, mild hydroureteronephrosis and perinephric inflammatory change and stranding. No obstructive etiology or calculus identified. These findings are suggestive of sequelae of pyelonephritis. Hepatomegaly and hepatic steatosis. Patient admitted. PN: 01/16/2025 Patient is seen and examined today this afternoon with family around. She is doing a lot better fever is intermittent comes ago still trying to find the source of the infection. Urology has been consulted for pyelonephritis with hydronephrosis currently. Patient said she vomited everything she eat today. Her wbc is trending downward. Will not change any treatment at this point. PN01/17/2025 Patient seen and examined today. He is doing much better fever seems to be subsiding been though she has bike every once in a while. Patient has low-grade fever this morning and also mentioned having vomiting this morning around 5:00 a.m. Of note, patient had a repeat renal ultrasound showed resolved resolved hydronephrosis. Per Urology patient is to follow up with the post discharge for cystoscopy. Given the fluctuating fevers, we will consider changing antibiotics to meropenem and Diflucan. Also we will repeat CT abdomen with contrast today. Repeat CBC and CMP. PN: 01/18/2025 Patient seen and examined today. she is doing much better. Started her on meropenem and diflucan yesterday. Still blood and urine culture did not grow any microorganism. Fever is improved, wbc is within normal limits. and vitals are stable. She is tolerating full liquid diet. pn: 01/19/2025 Patient is seen and examined today. He is feeling much better fevers down leukocyte within normal limit. Patient is doing good. The plan was to discharge her home today with IV antibiotic through midline. However, per her insurance she is unable to receive home health and If she has to get one, she would have to go to her primary care physician which she does not have currently. This plan was communicated with my attending and we decided to keep her 1 more day and send her home tomorrow on Cefpodoxime (ora) Subjective Review of Systems Constitutional: Denies fever no chills no feeling of malaise HEENT: Denies headache, ear pain, ear discharges, conjunctivitis, nasal discharge throat pain Cardiovascular: Denies chest pain, palpitation, orthopnea, PND, or pedal edema Respiratory: Denies shortness of breath, cough cough, sputum production, hemoptysis, GI: Denies abdominal pain, nausea, vomiting, diarrhea, hematemesis, hematochezia, : Denies frequency, urgency, hematuria, Endocrine: Denies unintentional weight gain or weight loss, feeling of hot flashes, [place]: Denies easy bruising, bleeding disorders, epistaxis Musculoskeletal: Denies joint pains, muscle aches Psych: No evidence of depression, melisa, suicidal ideation Objective vital signs Vital Sign Date Time Temp Pulse Resp B/P (MAP) Pulse Ox O2 Delivery O2 Flow Rate FiO2 01/19/25 17:00 98.0 82 0 132/89 (103) 96 98.0 01/18/25 20:00 Room Air* 0 21 Total Intake and Output 01/18/25 01/18/25 01/19/25 15:00 23:00 07:00 Intake Total 50 ml 1850 ml 1600 ml Balance 50 ml 1850 ml 1600 ml medications Current Medications Medications Dose Ordered Sig/Guero Route Start Time Stop Time Status Last Admin Dose Admin Sodium Chloride 1,000 ml @ 120 mls/hr Q8H20M IV 01/14/25 22:15 01/19/25 05:03 120 MLS/HR Metoclopramide HCl 10 mg Q4HP PRN IV 01/14/25 22:15 01/17/25 10:25 10 MG Acetaminophen/ Hydrocodone Bitart 1 tab Q4HP PRN PO 01/14/25 22:15 Ondansetron HCl 4 mg Q4HP PRN IV 01/14/25 22:15 01/18/25 05:24 4 MG Enoxaparin Sodium 40 mg DAILY SC 01/15/25 10:00 01/19/25 10:27 40 MG Morphine Sulfate 2 mg Q6HPRN PRN IV 01/15/25 15:00 01/18/25 05:29 2 MG Acetaminophen 650 mg BID PRN PO 01/17/25 18:00 Cefepime HCl 50 ml @ 12.5 mls/hr Q8HR IV 01/18/25 14:00 01/19/25 05:03 12.5 MLS/HR Examination General Appearance: Alert, Oriented X3, Cooperative, No acute distress HEENT: Atraumatic, PERRLA, EOMI, Mucous membrane moist/pink Respiratory: Clear to auscultation, Normal air movement Cardiovascular: Regular rate, Normal S1, Normal S2, No murmurs, no chest wall tenderness Abdominal: NO distention, no tenderness, bowel sounds present, no scars noted Extremities: No clubbing, No cyanosis, No edema, Normal pulses, No tenderness/swelling Skin: No rashes, No breakdown, No significant lesion Neuro: Normal gait, Normal speech, Strength at 5/5 X4 ext, Normal tone, Sensation intact, Cranial nerves 3-12 NL, Reflexes 2+ Psych/Mental Status: Mental status NL, Mood NL laboratory and microbiology Laboratory Tests 01/19/25 05:16 Test 01/19/25 05:16 Range/Units Serum Glucose 111 H 74-106 mg/dL Microbiology Date/Time Source Procedure Growth Status 01/15/25 22:00 Stool Stool Culture - Final Complete 01/15/25 22:00 Stool Shiga Toxin I & II - Final Complete 01/15/25 22:00 Stool Clostridium difficile Toxin Assay - Final Complete 01/15/25 18:00 Blood Blood Culture - Preliminary NO GROWTH AFTER 72 HOURS OF INCUBATION. Resulted 01/15/25 02:02 Voided Urine Urine Culture - Final Complete Problem List/Assessment/Plan Problem List/Assessment/Plan ASSESSMENT AND PLAN Sepsis due to complicated UTI --> Urine culture; No growth --> Blood culute: No growht --> Zosyn IV+ Vancomycin IV : Stopped today 01/17/2025 Plan: to discharge on 01/20/2025 on Cefpodoxime. - Left pyelonephritis, hydronephrosis resolved Persistent Fever resolved --> CT abdomen --> Start meropen and diflucan D/c 01/17/2025 --> Cefepime 1 gm tid --> Plan: to discharge on 01/20/2025 on Cefpodoxime mild hydroureteronephrosis --> Possible source of infection --> Urolog follow up outpatient Headache --> stat Toradol 15mg stat --> Firstline: Tylenol 600 bid prn for headache --> Second line: Percocet 10 q6hrs for moderate pain --> Thirdline: Morphine 2mg q6hrs prn for severe pain Diarrhea --> Stool WBC, culture Anxiety --> Continue home medication Depression --> Continue home medication CBD use Enoxaparin SC Diet:full liquid diet Plant to discharge home tomorrow on IV medication broad spectrum as his blood and urine culture did not grow anything. Case discussed for more than 16 minutes: Full code Case and plan discussed with Dr. Solorio Plan discussed with: Patient My Orders My Orders Orders - CAMILLE TAVAREZ RESIDENT Procedure Category Date Status Time Regular Diet DIET 01/19/25 Transmitted Breakfast Insert Midline ORDERS 01/19/25 Transmitted 11:51 * [employer] CONS 01/19/25 Transmitted Consult Schedule For Dc LAURIE 01/19/25 In Process Clinic F/U 13:09 Dietary Evaluation Review Comments: Recovering from sepsis, able to eat solid. Advance diet to as tolerated. Expected Outcomes/Goals: gradual wt loss Date of Service: January 19, 2025 Billing Provider: BUSTER TORRES MD Common Visit Codes: [id number] INP/OBS CARE(HIGH) CAMILLE TAVAREZ RESIDENT January 19, 2025 17:49 BUSTER TORRES MD January 21, 2025 01:25
[2025-01-19] MEDS: CEFEPIME 1GM/ 50ML 50 ML IV SCH (18:15)
[2025-01-19 21:00] VITALS: BP 132/94; PULSE 86; RESP 18; TEMP 98.2; O2SAT 95
[2025-01-20 01:00] VITALS: BP 107/71; PULSE 84; RESP 18; TEMP 98.4; O2SAT 98
[2025-01-20 05:00] VITALS: BP 127/80; PULSE 67; RESP 18; TEMP 98.3; O2SAT 96
[2025-01-20 09:12] VITALS: BP 134/76; PULSE 82; RESP 21; TEMP 98.5; O2SAT 93
[2025-01-20] MEDS: POTASSIUM EFFERVESENT TAB 25 MEQ PO ONE (11:45)
[2025-01-20] MEDS ORDERED: CEFP200T15 PO (13:21)
--- NOTE | 2025-01-20 14:07 | DVHDSRES ---
Discharge Summary Date of Admission Resident Creating Document: DIANA OLIVARES RESIDENT January 14, 2025 at 22:04 Date of Discharge: January 19, 2025 Admitting Diagnosis Dysuria Labs/Diagnostic Data: Laboratory Results Test 01/19/25 05:16 01/18/25 05:17 01/17/25 08:44 01/17/25 05:49 White Blood Count 10.1 10^3/uL (4.4-10.8) Red Blood Count 4.12 10^6/uL (4.0-5.20) Hemoglobin 12.6 g/dL (12.2-16.2) Hematocrit 36.4 % (36.0-46.0) Mean Corpuscular Volume 88.4 fL (80.0-100.0) Mean Corpuscular Hemoglobin 30.7 pg (28.0-32.0) Mean Corpuscular Hemoglobin Concent 34.8 g/dL (32.0-36.0) Red Cell Distribution Width 12.7 % (11.8-14.3) Platelet Count 336 10^3/uL (140-450) Mean Platelet Volume 7.8 fL (6.9-10.8) Neutrophils (%) (Auto) % (37.0-80.0) Lymphocytes (%) (Auto) % (10.0-50.0) Monocytes (%) (Auto) % (0.0-12.0) Basophils (%) (Auto) % (0.0-2.0) Neutrophils # (Auto) 10 ^3/uL (1.6-8.6) Lymphocytes # (Auto) 10 ^3/uL (0.4-5.4) Monocytes # (Auto) 10 ^3/uL (0-1.3) Differential Total Cells Counted 100.0 (100) Neutrophils % (Manual) 68 (37.0-80.0) Band Neutrophils % (Manual) 0 Lymphocytes % (Manual) 17 (10.0-50.0) Monocytes % (Manual) 11 (0-12) Eosinophils % (Manual) 2 (0-7) Basophils % (Manual) 0 (0.0-2.0) Metamyelocytes % (manual) 0 Myelocytes % (Manual) 2 Promyelocytes % (Manual) 0 Blast Cells % (Manual) 0 Reactive Lymphocytes 0 Platelet Estimate Adequate Sodium Level 139 mmol/L (136-145) Potassium Level 3.0 mmol/L (3.5-5.1) Chloride Level 102 mmol/L (98-107) Carbon Dioxide Level 26 mmol/L (20-31) Anion Gap 11 (5-15) Blood Urea Nitrogen 6 mg/dL (9-23) Creatinine 0.79 mg/dL (0.550-1.02) Glomerular Filtration Rate Calc 98 mL/min (>90) BUN/Creatinine Ratio 7.6 (10.0-20.0) Serum Glucose 111 mg/dL (74-106) Calcium Level 9.0 mg/dL (8.7-10.4) Nucleated Red Blood Cells 2.0 % Large Platelets Few Total Bilirubin 0.8 mg/dL (0.2-1.0) Aspartate Amino Transferase (AST) 17 U/L (13-40) Alanine Aminotransferase (ALT) 26 U/L (7-40) Alkaline Phosphatase 83 U/L (46-116) Total Protein 6.7 g/dL (5.7-8.2) Albumin 4.1 g/dL (3.2-4.8) Vancomycin Level Trough 7.8 ug/mL (5-10) Eosinophils (%) (Auto) 1.0 % (0.0-7.0) Eosinophils # (Auto) 0.1 10 ^3/uL (0-0.8) Basophils # (Auto) 0.1 10 ^3/uL (0-0.2) Test 01/15/25 22:00 01/15/25 09:42 01/14/25 21:04 01/14/25 19:07 Stool Occult Blood Positive (Negative) Stool Occult Blood Sample #3 (Negative) Stool for White Cells Rare Hemoglobin A1c 4.9 % A1C (<5.7) Thyroid Stimulating Hormone (TSH) 1.49 uIU/mL (0.55-4.78) Lactic Acid Level 1.8 mmol/L (0.4-2.0) Red Blood Cell Morphology Normal Urine Color Light-orange (Yellow) Urine Clarity Turbid (Clear) Urine pH 6.0 (5.0-9.0) Urine Specific [place] 1.026 (1.001-1.035) Urine Protein 2+ (Negative) Urine Ketones 2+ (Negative) Urine Blood 2+ /uL (Negative) Urine Nitrite Negative (Negative) Urine Bilirubin Negative (Negative) Urine Urobilinogen Normal mg/dL (Negative) Urine Leukocyte Esterase 2+ /uL (Negative) Urine RBC 20 /hpf (0 - 4) Urine Microscopic WBC 59 /HPF (0-5) Urine Squamous Epithelial Cells Mod /hpf (<5) Urine Bacteria Few /hpf (None Seen) Urine Mucus Few (None Seen) Urine Glucose Trace mg/dL (Normal) Troponin I High Sensitivity < 3 ng/L (</=34) B-Type Natriuretic Peptide 13.01 pg/mL (0-100) Urine Opiates Screen Neg (NEGATIVE) Urine Fentanyl Screen Neg (NEGATIVE) Urine Barbiturates Screen Neg (NEGATIVE) Urine Phencyclidine Screen Neg (NEGATIVE) Urine Amphetamines Screen Neg (NEGATIVE) Urine Benzodiazepines Screen Neg (NEGATIVE) Urine Cocaine Screen Neg (NEGATIVE) Urine Cannabinoids Screen Pos (NEGATIVE) Other Laboratory Tests 01/19/25 05:16 Brief Hx & Hospital Course: A 39-year-old female with a medical history of anxiety, recurrent urinary tract infections (UTIs), and obesity presented to the emergency department with complaints of dysuria that had been ongoing since September 2024. Two days prior to admission, her symptoms worsened with the onset of right flank pain radiating to the groin, a sensation of a foreign body in the urethra, fever, nausea, vomiting, and palpitations. She denied hematuria, urinary urgency or frequency, incontinence, chills, or other associated symptoms. Her past surgical history includes bilateral tubal ligation, cholecystectomy, and uterine ablation. Family history is notable for cancer, heart disease, hyperthyroidism, fibromyalgia, hyperlipidemia, and seizures. Upon arrival, the patient was febrile and tachycardic. Laboratory workup revealed lactic acidosis and a positive urinalysis for UTI. A CT scan of the abdomen showed delayed right nephrogram with focally diminished attenuation in the superior pole, mild right hydroureteronephrosis, and perinephric inflammatory changesfindings consistent with pyelonephritis. Hepatomegaly and hepatic steatosis were also noted. She was admitted for sepsis secondary to a complicated UTI. During her hospital stay, the patient initially had intermittent fevers and vomiting, though her white blood cell count began trending downward. Urology was consulted for pyelonephritis with hydronephrosis. By the second hospital day, she continued to have low-grade fevers and vomiting, but a repeat renal ultrasound showed resolution of the hydronephrosis. Urology recommended outpatient cystoscopy. Due to persistent symptoms, her antibiotics were escalated to meropenem and Diflucan, and a repeat CT abdomen was ordered. By the third day, the patient showed significant improvement: she was afebrile, her WBC count normalized, and she tolerated a full liquid diet. Blood and urine cultures remained negative throughout her stay. Patient condition was improved, hemodynamically stable and in condition to be discharged home with cephalexin 2 times daily for 7 days. Patient was initially planned to sent on home health but due to insulin since issues unable to do home health. On physical examination, she was alert, oriented, and in no acute distress. Systemic examination was unremarkable, with normal findings across HEENT, respiratory, cardiovascular, abdominal, neurologic, and musculoskeletal systems. Her review of systems was largely negative, including no current fever, chills, urinary symptoms, or gastrointestinal complaints. Her final diagnoses included sepsis due to complicated UTI, left pyelonephritis with resolved hydronephrosis, persistent fever (noted on 01/17), mild hydroureteronephrosis, headache, diarrhea, anxiety, depression, and CBD use.A follow-up CBC and CMP were scheduled for day seven, along with appointments with her primary care provider and Urology for outpatient cystoscopy. The discharge plan was discussed with Dr. Solorio. Operations or Procedures 1. Renal Ultrasound (KIDUS) Technique: Multiple real-time sonographic images of the kidneys and bladder were obtained. Impression: 2 cm left renal cyst. Otherwise normal sonographic appearance of the kidneys. No hydronephrosis. Urinary bladder is unremarkable with a volume of [address] Abdomen and Pelvis with IV Contrast (ABPLIV) Technique: Multidetector spiral CT from lung bases to pubic symphysis with intravenous contrast (Omnipaque 300, 100 ml). Portal venous phase imaging. Axial, coronal, and sagittal reformats performed. Impression: Delayed right nephrogram with focally diminished superior pole parenchymal attenuation, mild hydroureteronephrosis, and perinephric inflammatory change and stranding. No obstructive etiology or calculus identified. Suggestive of pyelonephritis. Hepatomegaly and hepatic steatosis. 3. Chest X-Ray (CXR1) Technique: Single frontal view of the chest. Impression: No abnormality. Condition at Discharge: Stable Final Diagnosis/Problems List Sepsis due to complicated UTI Left pyelonephritis, hydronephrosis resolved Persistent Fever 01/17/2025 mild hydroureteronephrosis Headache Diarrhea Anxiety Depression CBD use Discharge Disposition: Home with Health Services Discharge Instruct/Medications Diet: Regular Diet comment: Or as can tolerate Activity: No Restrictions, As Tolerated Follow Up/Referral: PCP and urology Medications: Cefpodaxine 2 times daily for 7 days [id number] ibuprofen 2 times as needed for 7 days (do not overuse) Discharge Statement: "Patient was advised to return to the ER or call 911 if any headaches, dizziness, shortness of breath, chest pain, abdominal pain, bleeding, fevers, or worsening of medical condition. Patient was counseled about treatment plan, medications, possible side effects, patientverbalized understanding. All questions were answered to the best of my ability. This discharge took greater then 30 minutes in planning, reviewing documentation, counseling the patient, and discussing with other team members." ASSESSMENT ASSESSMENT Assessment Sepsis due to complicated UTI Left pyelonephritis, hydronephrosis resolved Persistent Fever 01/17/2025 mild hydroureteronephrosis Headache Diarrhea Anxiety Depression CBD use Date of Service: January 19, 2025 Billing Provider: BUSTER TORRES MD Common Visit Codes: 03360-ARM/OBS DISCH DAY >30min DIANA OLIVARES January 20, 2025 14:07 BUSTER TORRES MD January 22, 2025 00:36
== END 2025-01-20 14:00 | disposition home or self-care (01) | DRG 872 ==
LOC: ER 17:56 → OVERFLOW 22:04 → EAST 22:09
PROVIDERS: ADMIT Student in an Organized Health Care Education/Training Program; ATTEND Emergency Medicine
DX: A41.9 Sepsis, unspecified organism (principal); N13.6 Pyonephrosis; E66.9 Obesity, unspecified; F32.A Depression, unspecified; F41.9 Anxiety disorder, unspecified; F12.90 Cannabis use, unspecified, uncomplicated; Z88.0 Allergy status to penicillin; Z79.899 Other long term (current) drug therapy; Z90.49 Acquired absence of other specified parts of digestive tract; Z80.8 Family history of malignant neoplasm of other organs or systems; Z83.49 Family history of other endocrine, nutritional and metabolic diseases; Z68.29 Body mass index [BMI] 29.0-29.9, adult; Z87.440 Personal history of urinary (tract) infections
CPT/HCPCS: 36415; 71045; 74177; 76775; 80048; 80053; 80202; 80307; 81001; 82270; 83036; 83605; 83880; 84443; 84484; 85007; 85025; 85027; 85048; 87040; 87045; 87086; 87427; 87493; 93005; 96365; 96375; 99291; G0378; J1450; J1885; J2003; J2185; J2405; J2543